=== PATIENT | male | born 1970 | race Caucasian/White ===

== ENCOUNTER 2023-04-20 12:43 | Outpatient (OUT) | payer BC, SELFPAY ==
--- NOTE | 2023-04-20 | US_ITS ---
Patient Name: KALINA SHEPPARD MR#: [id number] : 1970 Exam Date: 04/20/2023 Ordering Doctor: DR Emmanuel Bernal . RADIOLOGY REPORT PROCEDURE: MM TOMOSYNTHESIS DIAGNOSTIC BI, 04/20/2023, 12:47 US BREAST RT LIMITED, 04/20/2023, 13:29 COMPARISON: None. INDICATIONS: Right Breast Lump Calculator Name NCI Breast Cancer Risk Assessment Tool 5 Year Breast Cancer Risk Not Applicable. Lifetime Breast Cancer Risk Not Applicable. Personal Breast Cancer No Personal Ovarian Cancer No Treatments None Family Cancers None LOCATION: [facility] BREAST COMPOSITION: Almost entirely fatty. FINDINGS: DIAGNOSTIC CATEGORY 1--NEGATIVE. RIGHT BREAST: No abnormal or suspicious finding on mammography and breast ultrasound. LEFT BREAST: No abnormal or suspicious finding on mammography. RECOMMENDATIONS: CLINICAL EVALUATION. PLEASE NOTE: A NORMAL MAMMOGRAM DOES NOT EXCLUDE THE POSSIBILITY OF BREAST CANCER. A CLINICALLY SUSPICIOUS PALPABLE LUMP SHOULD BE BIOPSIED. Dictated by: Stephen Cottrell M.D. on 04/20/2023 at 15:45 Approved by: Stephen Cottrell M.D. on 04/20/2023 at 15:46
--- NOTE | 2023-04-20 12:46 | MM_ITS ---
Patient Name: KALINA SHEPPARD MR#: [id number] : 1970 Exam Date: 04/20/2023 Ordering Doctor: DR Emmanuel Bernal . RADIOLOGY REPORT PROCEDURE: MM TOMOSYNTHESIS DIAGNOSTIC BI, 04/20/2023, 12:47 US BREAST RT LIMITED, 04/20/2023, 13:29 COMPARISON: None. INDICATIONS: Right Breast Lump Calculator Name NCI Breast Cancer Risk Assessment Tool 5 Year Breast Cancer Risk Not Applicable. Lifetime Breast Cancer Risk Not Applicable. Personal Breast Cancer No Personal Ovarian Cancer No Treatments None Family Cancers None LOCATION: [facility] BREAST COMPOSITION: Almost entirely fatty. FINDINGS: DIAGNOSTIC CATEGORY 1--NEGATIVE. RIGHT BREAST: No abnormal or suspicious finding on mammography and breast ultrasound. LEFT BREAST: No abnormal or suspicious finding on mammography. RECOMMENDATIONS: CLINICAL EVALUATION. PLEASE NOTE: A NORMAL MAMMOGRAM DOES NOT EXCLUDE THE POSSIBILITY OF BREAST CANCER. A CLINICALLY SUSPICIOUS PALPABLE LUMP SHOULD BE BIOPSIED. Dictated by: Stephen Cottrell M.D. on 04/20/2023 at 15:45 Approved by: Stephen Cottrell M.D. on 04/20/2023 at 15:46
== END 2023-04-20 12:44 | disposition home or self-care (01) ==
LOC: MAMMO 12:44
PROVIDERS: PCP Family Medicine; Visit Provider Family Medicine
DX: N63.10 Unspecified lump in the right breast, unspecified quadrant (principal)
CPT/HCPCS: 76642; 77066; G0279

== ENCOUNTER 2023-05-20 08:13 | Outpatient (OUT) | payer BC, SELFPAY ==
--- OUTSIDE RECORDS SUMMARY | 2023-05-20 08:16 | XMS_ITS | CCD ---
Author Name Unknown Address [address] [place] [address] Organization [facility] Care Team Providers Care Rug Cleaner Helper Name Role Phone MINIACI, [place] Unavailable Unavailable MINIACI, [place] Unavailable Unavailable MINIACI, [place] Unavailable Unavailable MINIACI, [place] Unavailable Unavailable ARACELI BARROSO ([facility]) Unavailable Unavai lable MINIACI, [place] Unavailable Unavailable MINIACI, [place] Unavailable Unavailable MINIACI, [place] Unavailable Unavailable MINIACI, [place] Unavailable Unavailable TIFFANY MALIK Unavailable Unavailable MINIACI, [place] Unavailable Unavailable MINIACI, [place] Unavailable Unavailable MINIACI, [place] Unavailable Unavailable MINIACI, [place] Unavailable Unavailable MINIACI, [place] Unavailable Unavailable MINIACI, [place] Unavailable Unavailable MINIACI, [place] Unavailable Unavailable MINIACI, [place] Unavailable Unavailable MINIACI, [place] Unavailable Unavailable MINIACI, [place] Unavailable Unavailable PHYSICIAN, DEFAULT Unavailable Unavailable PHYSICIAN, DEFAULT Unavailable Unavailable ARIADNA BERNAL Unavailable Unavailable DR ARIADNA BERNAL Attending Unavailable DOYLE, DR ROSENTHAL Admitting Unavailable DOYLE, DR ROSENTHAL Primary Care Unavailable DR ARIADNA BERNAL Consulting Unavailable DR ARIADNA BERNAL Admitting Unavailable DR ARIADNA BERNAL Primary Care Unavailable DR ARIADNA BERNAL Consulting Unavailable DR ARIADNA BERNAL Attending Unavailable Problems Problem Classification Problem Date Documented Da te Episodic/Chronic Osteoarthritis (1 source) Unilateral post-traumatic osteoarthritis, right knee; Translations: [Unilateral post-traumatic osteoarthritis, right knee] Onset: 02-23-2017 Chronic Other non-traumatic joint disorders (1 source) Loose body in unspecified joint; Translations: [Loose body in unspecified joint] Onset: 03-08-2017 Chronic Other screening for suspected conditions (not mental disorders or infectious disease) (5 sources) Encounter for screening for malignant neoplasm of rectum; Translations: [Encounter for screening for malignant neoplasm of prostate] Onset: 04-20-2022 Episodic Unclassified (1 source) Pain, unspecified; Translations: [Pain, unspecified] Onset: 02-07-2017 Unclassified (1 source) Unknown / UNK(Unknown) Onset: 04-13-2017 Results Test Name Value Interpretation Reference Range Facility OCC BLD IMMUNO SCREENon 04-11 OCCULT BLOOD Negative Normal NEGATIVE [facility] Comment on above: Performed By: #### O BSCRN #### [facility] [address] [place] [address] Dr. Lucia Ellis INSULINon 04-19-2022 Insulin 14.0 uIU/mL Normal 2.6-24.9 [facility] Comment on above: Performed By: #### I NSULIN #### [facility] [address] [place] [address] Dr. Lucia Ellis CBC AUTO DIFFon 04-17-2022 BASO # 0.1 103/ul Normal 0.0-0.1 [facility] Comment on above: Performed By: #### C BC #### [facility] [address] [place] [address] Dr. Lucia Ellis Basophils/100 WBC (Bld) 0.9 % Normal 0.2-2.0 [facility] Comment on above: Performed By: #### C BC #### [facility] [address] [place] [address] Dr. Lucia Ellis EO # 0.2 103/ul Normal 0.0-0.7 [facility] Comment on above: Performed By: #### C BC #### [facility] [address] [place] [address] Dr. Lucia Ellis Eosinophils/100 WBC (Bld) 2.3 % Normal 0.9-7.0 [facility] Comment on above: Performed By: #### C BC #### [facility] [address] [place] [address] Dr. Lucia Ellis Erythrocyte distribution width (RBC) [Ratio] 12.2 % Normal 11.0-15.0 [facility] Comment on above: Performed By: #### C BC #### [facility] [address] [place] [address] Dr. Lucia Ellis Hematocrit (Bld) [Volume fraction] 41.3 % Critically low 42.0-54.0 [facility] Comment on above: Performed By: #### C BC #### [facility] [address] [place] [address] Dr. Lucia Ellis Hemoglobin (Bld) [Mass/Vol] 15.0 g/dL Normal 14.0-18.0 [facility] Comment on above: Performed By: #### C BC #### [facility] [address] [place] [address] Dr. Lucia Ellis IG # 0.04 10e3/ul Critically high 0.00-0.03 [facility] Comment on above: Performed By: #### C BC #### [facility] [address] [place] [address] Dr. Lucia Ellis IG % 0.6 % Critically high 0.0-0.5 [facility] Comment on above: Performed By: #### C BC #### [facility] [address] [place] [address] Dr. Lucia Ellis LYMPH # 2.8 103/ul Normal 1.2-3.8 [facility] Comment on above: Performed By: #### C BC #### [facility] [address] [place] [address] Dr. Lucia Ellis Lymphocytes/100 WBC (Bld) 40.1 % Normal 20.5-60.0 [facility] Comment on above: Performed By: #### C BC #### [facility] [address] [place] [address] Dr. Lucia Ellis MANUAL DIFF REQ NO Normal [facility] Comment on above: Performed By: #### C BC #### [facility] [address] [place] [address] Dr. Lucia Ellis MCH (RBC) [Entitic mass] 29.1 pg Normal 25.9-34.0 [facility] Comment on above: Performed By: #### C BC #### [facility] [address] [place] [address] Dr. Lucia Ellis MCHC (RBC) [Mass/Vol] 36.3 g/dL Critically high 29.9-35.2 [facility] Comment on above: Performed By: #### C BC #### [facility] [address] [place] [address] Dr. Lucia Ellis MCV (RBC) [Entitic vol] 80.2 fL Normal 80.0-94.0 [facility] Comment on above: Performed By: #### C BC #### [facility] [address] [place] [address] Dr. Lucia Ellis MONO # 0.5 103/ul Normal 0.3-0.8 [facility] Comment on above: Performed By: #### C BC #### [facility] [address] [place] [address] Dr. Lucia Ellis Monocytes/100 WBC (Bld) 7.1 % Normal 1.7-12.0 [facility] Comment on above: Performed By: #### C BC #### [facility] [address] [place] [address] Dr. Lucia Ellis NEUT # 3.4 103/ul Normal 1.4-6.5 [facility] Comment on above: Performed By: #### C BC #### [facility] [address] [place] [address] Dr. Lucia Ellis Neutrophils/100 WBC (Bld) 49.0 % Normal 43.0-75.0 [facility] Comment on above: Performed By: #### C BC #### [facility] [address] [place] [address] Dr. Lucia Ellis Platelet mean volume (Bld) [Entitic vol] 8.8 fL Critically low 9.5-13.5 [facility] Comment on above: Performed By: #### C BC #### [facility] [address] [place] [address] Dr. Lucia Ellis PLT 260 103/ul Normal 150-450 [facility] Comment on above: Performed By: #### C BC #### [facility] [address] [place] [address] Dr. Lucia Ellis RBC 5.15 106/ul Normal 4.70-6.10 [facility] Comment on above: Performed By: #### C BC #### [facility] [address] [address] [address] Lucia Ellis WBC 6.9 103/ul Normal 4.0-11.0 [facility] Comment on above: Performed By: #### C BC #### [facility] [address] [address] [address] Lucia Ellis GLYCOHEMOGLOBIN A1Con 2022 ADA RECOMMENDATION SEE BELOW Normal [facility] Comment on above: Result Comment: ADA RECOMMENDED LIMIT 4.0 - 6.0 ADA THERAPEUTIC TARGET < 7.0 ACTION SUGGESTED > 7.0 Performed By: #### A 1C #### [facility] [address] [place] [address] Dr. Lucia Ellis Glucose [Mass/Vol] 108 mg/dL Normal [facility] Comment on above: Performed By: #### A 1C #### [facility] [address] [place] [address] Dr. Lucia Ellis HbA1c (Bld) [Mass fraction] 5.4 % Normal 4.5-6.2 [facility] Comment on above: Performed By: #### A 1C #### [facility] [address] [place] [address] Dr. Lucia Ellis LIPID PROFILEon 04-17-2022 CHOL-HDL RATIO NORM SEE BELOW Normal [facility] Comment on above: Result Comment: 3.3 - 4.4 LOW RISK 4.4 - 7.1 AVERAGE RISK 7.1 - 11.0 MODERATE RISK >11.0 HIGH RISK Performed By: #### L IPID, URIC, CMP #### [facility] [address] [place] [address] Dr. Lucia Ellis Cholesterol [Mass/Vol] 216 mg/dL Critically high <=200 [facility] Comment on above: Performed By: #### L IPID, URIC, CMP #### [facility] [address] [place] [address] Dr. Lucia Ellis Cholesterol in HDL [Mass/Vol] 49 mg/dL Normal 40-60 [facility] Comment on above: Performed By: #### L IPID, URIC, CMP #### [facility] [address] [address] [address] Lucia Ellis Cholesterol in LDL [Mass/Vol] 135.0 mg/dL Normal [facility] Comment on above: Performed By: #### L IPID, URIC, CMP #### [facility] [address] [address] [address] Lucia Ellis Cholesterol.total/C holesterol in HDL [Mass ratio] 4.4 {ratio} Normal [facility] Comment on above: Performed By: #### L IPID, URIC, CMP #### [facility] [address] [address] [address] Lucia Ellis HDL NORMAL > or = 60 mg/dl - LO W CARDIOVASCULAR RISK <40 mg/dl - HIGH CARDIOVASCULAR RISK Normal [facility] Comment on above: Performed By: #### L IPID, URIC, CMP #### [facility] [address] [address] [address] Lucia Ellis LDL CALC NORMAL SEE BELOW Normal [facility] Comment on above: Result Comment: <100 mg/dl OPTIMAL 100 - 129 mg/dl NEAR OR ABOVE OPTIMAL 130 - 159 mg/dl BORDERLINE HIGH 160 - 189 mg/dl HIGH >190 mg/dl VERY HIGH Performed By: #### L IPID, URIC, CMP #### [facility] [address] [address] [address] Lucia Ellis Triglyceride [Mass/Vol] 160 mg/dL Critically high <=150 [facility] Comment on above: Performed By: #### L IPID, URIC, CMP #### [facility] [address] [address] [address] Lucia Ellis VLDL CALC 32.0 mg/dL Normal [facility] Comment on above: Performed By: #### L IPID, URIC, CMP #### [facility] [address] [address] [address] Lucia Ellis PROF 14(COMP METB)on 023 Albumin [Mass/Vol] 3.8 g/dL Normal 3.4-5.0 [facility] Comment on above: Performed By: #### L IPID, URIC, CMP #### [facility] [address] [address] [address] Lucia Ellis Albumin/Globulin [Mass ratio] 1.2 {ratio} Normal [facility] Comment on above: Performed By: #### L IPID, URIC, CMP #### [facility] [address] [address] [address] Lucia Ellis ALP [Catalytic activity/Vol] 54 U/L Normal 46-116 [facility] Comment on above: Performed By: #### L IPID, URIC, CMP #### [facility] [address] [address] [address] Lucia Ellis ALT [Catalytic activity/Vol] 41 U/L Normal 16-63 [facility] Comment on above: Performed By: #### L IPID, URIC, CMP #### [facility] [address] [address] [address] Lucia Ellis Anion gap [Moles/Vol] 13.4 mmol/L Normal [facility] Comment on above: Performed By: #### L IPID, URIC, CMP #### [facility] [address] [address] [address] Lucia Ellis AST [Catalytic activity/Vol] 23 U/L Normal 15-37 [facility] Comment on above: Performed By: #### L IPID, URIC, CMP #### [facility] [address] [address] [address] Lucia Ellis Bilirubin [Mass/Vol] 0.5 mg/dL Normal 0.2-1.0 [facility] Comment on above: Performed By: #### L IPID, URIC, CMP #### [facility] [address] [address] [address] Lucia Ellis Calcium [Mass/Vol] 8.9 mg/dL Normal 8.5-10.1 [facility] Comment on above: Performed By: #### L IPID, URIC, CMP #### [facility] [address] [address] [address] Lucia Ellis Chloride [Moles/Vol] 104 mmol/L Normal 98-107 [facility] Comment on above: Performed By: #### L IPID, URIC, CMP #### [facility] [address] [place] [address] Dr. Lucia Ellis CO2 [Moles/Vol] 27.9 mmol/L Normal 21.0-32.0 [facility] Comment on above: Performed By: #### L IPID, URIC, CMP #### [facility] [address] [place] [address] Dr. Lucia Ellis Creatinine [Mass/Vol] 0.69 mg/dL Critically low 0.70-1.30 [facility] Comment on above: Performed By: #### L IPID, URIC, CMP #### [facility] [address] [place] [address] Dr. Lucia Ellis EGFR-AF BELARUSIAN >60 Normal >=60 [facility] Comment on above: Performed By: #### L IPID, URIC, CMP #### [facility] [address] [place] [address] Dr. Lucia Ellis EGFR-NON AF BELARUSIAN >60 Normal >=60 [facility] Comment on above: Performed By: #### L IPID, URIC, CMP #### [facility] [address] [place] [address] Dr. Lucia Ellis Globulin (S) [Mass/Vol] 3.2 g/dL Normal [facility] Comment on above: Performed By: #### L IPID, URIC, CMP #### [facility] [address] [place] [address] Dr. Lucia Ellis Glucose [Mass/Vol] 99 mg/dL Normal 74-106 [facility] Comment on above: Performed By: #### L IPID, URIC, CMP #### [facility] [address] [place] [address] Dr. Lucia Ellis Potassium [Moles/Vol] 4.3 mmol/L Normal 3.5-5.1 [facility] Comment on above: Performed By: #### L IPID, URIC, CMP #### [facility] [address] [place] [address] Dr. Lucia Ellis Protein [Mass/Vol] 7.0 g/dL Normal 6.4-8.2 [facility] Comment on above: Performed By: #### L IPID, URIC, CMP #### [facility] [address] [address] [address] Lucia Ellis Sodium [Moles/Vol] 141 mmol/L Normal 136-145 [facility] Comment on above: Performed By: #### L IPID, URIC, CMP #### [facility] [address] [place] [address] Dr. Lucia Ellis Urea nitrogen [Mass/Vol] 16.0 mg/dL Normal 7.0-18.0 [facility] Comment on above: Performed By: #### L IPID, URIC, CMP #### [facility] [address] [place] [address] Dr. Lucia Ellis Urea nitrogen/Creatinine [Mass ratio] 23.2 mg/mg Normal [facility] Comment on above: Performed By: #### L IPID, URIC, CMP #### [facility] [address] [place] [address] Dr. Lucia Ellis URIC ACID SERUMon 04-17-2022 Urate [Mass/Vol] 6.1 mg/dL Normal 3.5-7.2 [facility] Comment on above: Performed By: #### L IPID, URIC, CMP #### [facility] [address] [place] [address] Dr. 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)But is happy that he can go up and down stairs without issues, reportsintermittent 2/10 discomfort, non-limitingDenies any c/o instability, or mechanical sxs,Back to work 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,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 needs C709 formCompleted to return back to full-time duties, ambulating independently, deniesany complaints of numbness or tinglingDenies calf painREVIEW OF SYSTEMS:CONSTITUTIONAL: Denies fever and weight loss.EYES: Denies acute vision changes.ENT: Denies hearing changes or difficulty swallowing.CARDIAC: Denies chest pain or edema.RESPIRATORY: Denies dyspnea, cough or wheeze.GASTROINTESTINAL: Denies abdominal pain, nausea, vomiting.MUSCULOSKELETAL: See HPI.SKIN: Denies any recent rash or lesion.NEUROLOGICAL: Denies numbness or focal weakness.PSYCHIATRIC: No history of psychiatric symptoms or problems.ENDOCRINE: Denies current diagnosis of diabetes.HEMATOLOGY: Denies episodes of easy bleeding.Allergies, medications, past surgical history and past medical history werereviewed during this encounter.Physical Examination: Region: KneeNon antalgic gaitLeft Exam:AROM: NormalPROM: Same as activeSwelling/Effusion: noneStability: normalMuscle Strength: normalIncision: n/aRight Exam:AROM: 3/130PROM: Same as activeSwelling/Effusion: mildStability: normalMuscle Strength: decreasedIncision: well healed without erythema, tenderness, warmth or drainageImages have been personally reviewed by me and discussed with patient. None .Assessment and Plan: 11 weeks postop with improvement of knee symptomsSeen and examined by Dr. Harkins improvement of symptoms patient will continue activities as tolerated,Return back to full-time duties without restrictionsDated today, forms to be completed and faxed to his employerShould he develop any issues in the future will come back in follow-upElliott Mccabe MD 06/08/2017 10:32 AM SignedI have personally seen, examined the pt. And agree with the documentation of myclinical staff. I have personally developed the pt's plan of care.Sofiya Quinones Provider: HOUSTON AWAN [[id number]]Allergies As of Date: 06/08/2017(No Known Allergies)Date Reviewed: 06/08/2017Reviewed by: Araceli Velasco ([facility]) [place]io - Fully AssessedReason for Visit: Post-Op Visit [1236] Cmt: RIght knee post op visit. Pain is intermittent at a 2 outof ten.Primary Visit Diagnosis:Primary osteoarthritis of right knee [M17.11] Other Visit Diagnosis:Loose body in knee, right [M23.41]Prescriptions as of 06/08/2017 Sig: ASPIRIN 81 MG CHEWABLE TABLET TAKE ONE 325 MG TABLET OF ASP* GLUCOSAMINE COMPLEX ORAL Take by mouth. PAROXETINE 40 MG TABLET Take 40 mg by mouth once madelyn* METOPROLOL TARTRATE 50 MG TAB* Take 50 mg by mouth once madelyn* MULTIVITAMIN CAPSULE Take 1 capsule by mouth once *Problem List As Of Date 06/08/2017 Noted Resolved TEAR MENISCUS NEC-CURRENT [[id number]] INVALID FOR* MITRAL VALVE DISORDER [I05.9] INVALID FOR* ANXIETY STATE NEC [F41.1] INVALID FOR* INT DERANGEMENT KNEE NOS [M23.90] INVALID FOR* Joint loose bodies [M24.00] INVALID FOR* More... OA (osteoarthritis) of knee [M17.10] INVALID FOR* More... Status:Closed by [place]ON AWAN MD on 06/08/17 [facility] PROGRESSon 06-08-2017 PROGRESS HNO ID: [id number] thor: [place] AwanService: (none)Author Type: PhysicianType: Progress NotesFiled: 06/08/2017 10:32 AMNote Text:I have personally seen, examined the pt. And agree with the documentationof my clinical staff. I have personally developed the pt's plan ofcare.Houston Awan MD [facility] PROGRESS HNO ID: [id number] thor: Araceli Velasco ([facility]) Dailyice: (none)Author Type: Nurse PractitionerType: Progress NotesFiled: 06/08/2017 10:32 AMNote Text:Chief Complaint: follow-up of 11 wks s/p Right knee arthroscopy,chondroplasty, and removal of multiple loose bodies.?HPI: doing well, reports significant improvement in sxs, isn't back doingheavy labor (pouring concrete)But is happy that he can go up and down stairs without issues, reportsintermittent 2/10 discomfort, non-limitingDenies any c/o instability, or mechanical sxs,Back to work 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,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 needs C709 formCompleted to return back to full-time duties, ambulating independently,denies any complaints of numbness or tinglingDenies calf painREVIEW OF SYSTEMS:CONSTITUTIONAL: Denies fever and weight loss.EYES: Denies acute vision changes.ENT: Denies hearing changes or difficulty swallowing.CARDIAC: Denies chest pain or edema.RESPIRATORY: Denies dyspnea, cough or wheeze.GASTROINTESTINAL: Denies abdominal pain, nausea, vomiting.MUSCULOSKELETAL: See HPI.SKIN: Denies any recent rash or lesion.NEUROLOGICAL: Denies numbness or focal weakness.PSYCHIATRIC: No history of psychiatric symptoms or problems.ENDOCRINE: Denies current diagnosis of diabetes.HEMATOLOGY: Denies episodes of easy bleeding.Allergies, medications, past surgical history and past medical historywere reviewed during this encounter.Physical Examination: Region: KneeNon antalgic gaitLeft Exam:AROM: NormalPROM: Same as activeSwelling/Effusion: noneStability: normalMuscle Strength: normalIncision: n/aRight Exam:AROM: 3/130PROM: Same as activeSwelling/Effusion: mildStability: normalMuscle Strength: decreasedIncision: well healed without erythema, tenderness, warmth or drainageImages have been personally reviewed by me and discussed with patient.None .Assessment and Plan: 11 weeks postop with improvement of knee symptomsSeen and examined by Dr. Harkins improvement of symptoms patient will continue activities astolerated,Return back to full-time duties without restrictionsDated today, forms to be completed and faxed to his employerShould he develop any issues in the future will come back in follow-upAraceli Barroso CNP Normal [facility] 05-02-2017 Thyroid stimulating hormone (TSH) Letter [facility] IncHouston Awan MD[address] [place], [place] [address]: [phone] Swwqc. [phone] 2017ATTN: VickiDipika # [id number] Shipmanz[address]AttEllett Memorial Hospital [address]Nk Whom It May Concern,This letter is to certify that Tomasz Sheppard has been under my carefollowing knee surgery on March 22, 2018. Tomasz may return to work onMay 05, 2017 with the following restrictions for the next 4 weeks:Light duty work, which would include intermittent sitting to rest knee astoleratedNo climbing, no laddersNo crawlingThank you for your consideration with this matter.Sincerely,Houston Awan MD Normal [facility] Discharge Summaryon 04-29-19 18 HIM IP Note OR Control Technician [facility] Progress Noteon 04-29-2017 HIM IP Note OR Control Technician [facility] Progress Noteon 04-26-2017 HIM IP Note OR Control Technician [facility] Progress Noteon 04-22-2017 HIM IP Note OR Control Technician [facility] Progress Noteon 04-19-2017 HIM IP Note OR Control Technician [facility] Progress Noteon 04-15-2017 HIM IP Note OR Control Technician [facility] PROGRESSon 04-14-2017 PROGRESS HNO ID: [id number] thor: Araceli Velasco ([facility]) ReinhardtService: (none)Author Type: Nurse PractitionerType: Progress NotesFiled: 04/14/2017 3:31 PMNote Text:This visit was conducted as a virtual visit.Chief Complaint:: 3 wks s/p Right knee arthroscopy, chondroplasty, andremoval of multiple loose bodies.HPI: pain has improved, tolerable with OTC NSAIDs,Denies any c/o N/T, calf pain or calf swelling.Denies any complaints of mechanical sxs, denies catching, or locking sxsAmbulating independentlyDenies any issues with incisions, denies any local tenderness or redness,had sutures taken out locally this week without issues,minimal knee swelling.Tolerating PT/HEP without any issues, still feels weakReturn to work goal: 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,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 on 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 feet all day, climbing ladders, crawling, squatting-[id number] formThat was sent to our office filled out for his work as it relates karlie's appointmentReview of Systems:GENERAL: No weight loss, malaise, fevers or chillsRESPIRATORY: Negative for cough, hemoptysis, wheezing or shortness ofbreathCARDIOVASCULAR: Negative for chest pain, lightheaded ness or palpitationsGI: No nausea, vomiting, diarrhea or constipationAllergies, medications, past surgical history and past medical historywere reviewed during this encounter.Physical Examination: Region: KneeAlert, oriented in no acute distressNormal effect. mild antalgic gaitRight Exam:Able to fully straighten knee while sitting on chair, flexes to it [id number] degresSwelling/Effusion: traceIncision: Well-healed, without evidence of erythema, or drainage.Assessment : 3 wks post op with no evidence of DVT or infectionPlan1) Wound Care May get incisions wet in the shower, by allowing the water to run overthem. Avoid scrubbing incisions.Avoid soaking your leg in a hot tub, bath tub or pool until you are atleast 6 weeks post op and incisions well healed. Do not apply lotions or ointments to your incisions until you are 6weeks post op and incisions are well healed.2) use local, intermittent ice with skin covered, elevation andstockenette as needed3) continue PT/HEP4) discussed we'll check with office as to the status of the C7 09 form,Further discussed return to work plan, given the nature of his jobDiscussed returning in approximately 3-4 weeks' timeOn light duty, which would include intermittent sitting to rest knee astolerated,No climbing, no ladders or crawling6) return in 9 wks with no x-rays with Dr Lorne Barroso, TASSEL MAKING MACHINE OPERATOR Normal [facility] 04-13-2017 [facility] ([facility]) ---------TOMASZ SHEPPARD ([id number]) 1970 MDate Time Provider Department04/13/17 10:00 AM ARACELI BARROSO ([place]) [facility] During your visit today, we recorded the following information about you:Araceli Barroso CNP 04/14/2017 3:31 PM SignedThis visit was conducted as a virtual visit.Chief Complaint:: 3 wks s/p Right knee arthroscopy, chondroplasty, and removalof multiple loose bodies.HPI: pain has improved, tolerable with OTC NSAIDs,Denies any c/o N/T, calf pain or calf swelling.Denies any complaints of mechanical sxs, denies catching, or locking sxsAmbulating independentlyDenies any issues with incisions, denies any local tenderness or redness, hadsutures taken out locally this week without issues,minimal knee swelling.Tolerating PT/HEP without any issues, still feels weakReturn to work goal: 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,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 mild antalgic gaitRight Exam:Able to fully straighten knee while sitting on chair, flexes to it [id number] degresSwelling/Effusion: traceIncision: Well-healed, without evidence of erythema, or drainage.Assessment : 3 wks post op with no evidence of DVT or infectionPlan1) Wound Care May get incisions wet in the shower, by allowing the water to run over them. Avoid scrubbing incisions.Avoid soaking your leg in a hot tub, bath tub or pool until you are at least 6weeks post op and incisions well healed. Do not apply lotions or ointments to your incisions until you are 6 weekspost op and incisions are well healed.2) use local, intermittent ice with skin covered, elevation and stockenette asneeded3) continue PT/HEP4) discussed we'll check with office as to the status of the C7 09 form,Further discussed return to work plan, given the nature of his jobDiscussed returning in approximately 3-4 weeks' timeOn light duty, which would include intermittent sitting to rest knee astolerated,No climbing, no ladders or crawling6) return in 9 wks with no x-rays with Dr Lorne Barroso, [facility]Referring Provider: HOUSTON AWAN [[id number]]Allergies As of Date: 04/13/2017(No Known Allergies)Date Reviewed: 03/22/2017Reviewed by: Araceli Velasco ([facility]) Chio - Fully AssessedPrimary Visit Diagnosis:Post-operative state [Z98.890]Prescriptions as of 04/13/2017 Sig: ASPIRIN 81 MG CHEWABLE TABLET TAKE ONE 325 MG TABLET OF ASP* GLUCOSAMINE COMPLEX ORAL Take by mouth. PAROXETINE 40 MG TABLET Take 40 mg by mouth once madelyn* METOPROLOL TARTRATE 50 MG TAB* Take 50 mg by mouth once madelyn* MULTIVITAMIN CAPSULE Take 1 capsule by mouth once *Problem List As Of Date 04/13/2017 Noted Resolved TEAR MENISCUS NEC-CURRENT [ZVH4556] INVALID FOR* MITRAL VALVE DISORDER [I05.9] INVALID FOR* ANXIETY STATE NEC [F41.1] INVALID FOR* INT DERANGEMENT KNEE NOS [M23.90] INVALID FOR* Joint loose bodies [M24.00] INVALID FOR* More... OA (osteoarthritis) of knee [M17.10] INVALID FOR* More...Medications Discontinued During This Encounter HYDROcodone-acetaminophen (NORCO) 5-* 35 t* 0 03/22/2017 04/14/2017 Class: Print RX Sig: One tablet by mouth every 4 to 6 hours as needed PRN For pain Disc: Course of therapy completed docusate sodium (COLACE) 100 mg caps* 60 c* 0 03/22/2017 04/14/2017 Class: Print RX Route: ORAL Sig: Take 1 capsule by mouth twice daily as needed for Constipation (take while taking narcotic pain medication). Disc: Course of therapy completedFollow-up and Disposition History RecordedEncounter Number: [id number] Status:Closed by ARACELI BARROSO CNP on 04/14/17 Normal [facility] Progress Noteon 04-12-2017 HIM IP Note OR Control Technician Normal [facility] Progress Noteon 04-08-2017 HIM IP Note OR Control Technician Normal [facility] Progress Noteon 04-06-2017 HIM IP Note OR Control Technician [facility] ANES Jey 03-22-2017 ANES POST HNO ID: [id number] thor: Zhang Ramesh IIIService: AnesthesiologyAuthor Type: AnesthesiologistType: Anesthesia PostOpFiled: 03/22/2017 4:58 PMNote Text:POST ANESTHESIA EVALUATION NOTESERVICE DATE: 03/22/2017SERVICE TIME: 35DOB: 1970Vitals: 03/22/1708Temp: 36.5 ?C (97.7 ?F) 36.5 ?C (97.7 ?F) 03/22/1708P: 134/80 131/75 132/78 132/77 03/22/1708Pulse: 81 73 64 66 03/22/1708Resp: 15 16 20 18 03/22/1708SpO2: 97% 99% 98% 99%Validated Vital Signs: YesPOST ANES STATUS: No apparent anesthetic complications. The patient isappropriately hydrated with stable respiratory and cardiovascular status.Patient has safe and adequate airway control. The patient has appropriatepain relief and no significant post operative nausea or vomiting. Thepatient has achieved baseline mental status.Further assessment by Anesthesia Service: NoneOther Remarks:SIGNATURE: Zhang Ramesh MD PATIENT NAME: Tomasz SheppardDATE: March 22, 2017 : 9:35 AM PAGER/CONTACT #: [id number] [facility] ANES PREOPon 03-22-2017 ANES PREOP HNO ID: [id number] thor: Zhang Ramesh IIIService: AnesthesiologyAuthor Type: AnesthesiologistType: Anesthesia PreOpFiled: 03/22/2017 7:24 AMNote Text: ANESTHESIOLOGY DAY OF SURGERY NOTESERVICE DATE: 03/22/2017SERVICE TIME: 716DOB: 1970Procedure(s) (LRB):ARTHROSCOPY KNEE ARTICULAR CARTILAGE SHAVING OR DEBRIDEMENT (Right)ARTHROSCOPIC REMOVAL LOOSE BODY KNEE (Right)CHONDROPLASTY KNEE (Right)Surgeon(s):Houston Vasquez body mass index is 36.07 kg/(m2) as calculated from thefollowing: Height as of this encounter: 182.9 cm (6' 0.01 ). Weight as of this encounter: 120.7 kg (266 lb).Most recent hematocrit and potassium results:Hematocrit 44.2 05/17/2005Potassium 4.4 05/17/2005NES DOS/PREOP NOTE:Vitals: 018751MO: 133/91Pulse: 71Resp: 18Temp: 36.5 ?C (97.7 ?F)TempSrc: TympanicSpO2: 99%Weight: 120.7 kg (266 lb)Height: 182.9 cm (6' 0.01 )ACTIVE PROBLEM LISTOther Tear of Cartilage Or Meniscus of Knee, CurrentMitral Valve Disorders(424.0)Other Anxiety StatesUnspecified Internal Derangement of KneeJoint Loose BodiesOa (Osteoarthritis) of KneeNo past medical history on file.No past surgical history on file.No family history on file.Social History:Social HistorySubstance Use Topics- Smoking status: Never Smoker- Smokeless tobacco: Not on file- Alcohol use Not on fileNo current facility-administered medications on file prior to encounter.Current Outpatient Prescriptions on File Prior to Encounter:GLUCOSAMINE HCL AND SULFATE (GLUCOSAMINE COMPLEX ORAL) Take by mouth.PARoxetine (PAXIL) 40 mg tablet Take 40 mg by mouth once daily.metoprolol tartrate, short acting, (LOPRESSOR) 50 mg tablet Take 50 mg bymouth once daily.aspirin 81 mg chewable tablet Take 81 mg by mouth once daily.Multivitamin capsule Take 1 capsule by mouth once daily.Current Facility-Administered Medications:lactated ringers infusion 5-30 mL/hr INTRAVENOUS CONTINUOUS Leslee (Architecture Technician)Chio Last Rate: 30 mL/hr at 03/22/17 0625 30 mL/hr at 03/22/17 0625ceFAZolin 3 g in sterile water 30 mL (ANCEF) 3 g INTRAVENOUS Pre-Op OnceAraceli Nyey (Architecture Technician) Reinhardtscopolamine 1 mg over 3 days 1 Patch (TRANSDERM-SCOP) 1 Patch TRANSDERMALq 72 HR Zhang Peña[START ON 03/25/2017] scopolamine - REMOVE PATCH OTHER q 72 HR Zhang Peñascopolamine - VERIFY patch OTHER q 8 H Zhang ROBERTSllergies: ALLERGIESNo Known AllergiesDOS EXAM: Adequate NPO status: YesAnesthetic risks, benefits, alternatives, personnel and consent discussed:YesPatient agrees to proceed: YesPrevious Anesthesia: No history of adverse event.Airway Assessment: MP 1; Neck ROM: Full ROM without neurologic symptoms;Airway Evaluation: No significant abnormalitiesSymptoms of Sleep Apnea: yesDentition: Teeth intactAdditional Physical Exam:Lungs: Patient health status unchanged since recent history and physical.See history and physical for exam findings.Cardiac: Patient health status unchanged since recent history andphysical. See history and physical for exam findings.Additional Pertinent Findings: N/ABlood Products: Not anticipated for this procedure.Anesthetic Plan: General, Standard ASA MonitorsPain Management Plan: Parenteral or OralASA Class: 2Other Medical Problems: NoneChronic Beta Stephanie medication administered within 24 hours: N/AI have interviewed and examined the patient. I have reviewed the medicalrecord and/or the pre-anesthesia evaluation, pertinent labs, and testresults.Significant changes in the patient's condition since the History andPhysical, not otherwise documented in primary service progress notes: NoThis contains updated information obtained within 48 hours ofSurgery/Procedure.SIGNAT URE: Zhang Ramesh MD PATIENT NAME: Tomasz SheppardDATE: March 22, 2017 : 7:17 AM CSN: [id number] [facility] BRIEF OP NOTon 03-22-2017 BRIEF OP NOT HNO ID: [id number] thor: Houston Rydere: Orthopaedic SurgeryAuthor Type: PhysicianType: Brief Op NoteFiled: 03/22/2017 8:32 AMNote Text:BRIEF OP NOTELOG ID: [id number]/Procedure Date: 03/22/2017Incision/Procedu re Start Time: 8:04 AMIncision Close/Procedure End Time: 8:21 AMSurgeon(s)/Proceduralist (s) and Shop Router(s):Surgeon(s) and Role: * Houston Awan - Primary * Araceli Barroso CNP first assistantProcedure(s): right knee arthroscopy with debridement and removal of loosebodiesAnesthesia: GeneralFindings: grade 4 cartilage loss lateral compartment, grade 3-4 lossmedial compartment, some cartilage loss patellofemoral compartment,multiple loose bodiesEstimated Blood Loss: 0 mlSpecimens: NoneComplications: NonePre-Op/Pre-Procedure Diagnosis: right knee arthritis, with loose bodiesPost-Op/Post-Procedu re Diagnosis: Joint loose bodies [M24.00]OA(osteoarthritis) of knee [M17.10]SIGNATURE: Houston Awan MD PATIENT NAME: Tomasz SheppardDATE: March 22, 2017 : 8:29 AM PAGER/CONTACT #: [facility] NURSING PROGon 03-22-2017 NURSING PROG HNO ID: [id number] thor: Clarissa Moreland (Rn) AIXA Renteriaervice: (none)Author Type: Registered NurseType: Nursing Progress NoteFiled: 03/23/2017 2:58 PMNote Text:Patient states no pain. Had moderate amount of bloody drainage yesterdayand changed dressing, no further drainage. No questions or concerns. [facility] NURSING PROG HNO ID: [id number] thor: Zena Estrella) Gaby Augileraice: NursingAuthor Type: Registered NurseType: Nursing Progress NoteFiled: 03/22/2017 6:51 AMNote Text:PRE OP LEARNING ASSESSMENTPROCEDURE/SURGER Y: SURGERY: Right knee arthroscopyREADINESS TO LEARNCOGNITIVE ABILITY: Alert and orientedMOTIVATION TO LEARN: EagerFAMILY SUPPORT: High - Very involved in pt carePATIENT LEARNS BEST BY: Verbal InstructionFACTORS AFFECTING LEARNING: NonePHYSICAL LIMITATIONS AFFECTING LEARNING: NoneElectronically Signed By: Zena Aguilera RN In Department: [facility] - [facility] OPERATIVE NOon 03-22-2017 OPERATIVE NO HNO ID: [id number] thor: Houston AwanService: Orthopaedic SurgeryAuthor Type: PhysicianType: Operative ReportFiled: 03/24/2017 7:22 AMNote Text:[facility] HOSPITALOperative ReportORIGINATOR: JAZMINE MorenoTOMASZ WMRN: [id number] ACCTNUM: [id number]: OROR LOCATION: [place] [address]ATTENDING PHYSICIAN: Houston Awan, MDDATE OF PROCEDURE: 03/22/2017SURGEON: Houston Awan MDASSISTANT: Araceli Barroso, certified nurse practitioner. Noresidents or fellows available. Susan Barroso was necessary forpositioning the patient, arthroscopic equipment assisting during thetechnical portions of the procedure.PREOPERATIVE DIAGNOSIS: 1. Primary osteoarthritis, right knee.2. Multiple loose bodies, right knee.POSTOPERATIVE DIAGNOSIS: 1. Primary osteoarthritis, right knee.2. Multiple loose bodies, right knee.OPERATION: Right knee arthroscopy, chondroplasty, and removal of multipleloose bodies.ANESTHESIA: General anesthesia.MODIFIER 22: Patient's BMI greater than 35.PREOPERATIVE ASSESSMENT: Tomasz is a 46-year-old who has been havingongoing problems with the feelings of instability and pain in his rightknee.Preoperative assessment had revealed some laxity of his ACL on MRI withmultiple loose bodies, severe and advanced osteoarthritis of the lateralcompartment of his knee, and in view of his symptomatology, feelings ofmechanical symptoms, we felt that an arthroscopy with removal of loosebodies might help solve some of his symptomatology. [facility] [place],appropriate right extremity marked. The patient was then prepared forsurgery, given intravenous fluids, intravenous antibiotics, the patientwas then taken to the operating room.DESCRIPTION OF OPERATION: After appropriate huddles and time-outs, thepatient was given general anesthetic, supine position. Right leg wasprepped and draped in the usual manner. Pneumatic tourniquet wasinflated to 300 mmHg. Standard diagnostic arthroscopy through ananterolateral portal. Arthroscopic findings of surgery were as follows.1. Patellofemoral joint demonstrated some fraying, grade 2 to 3 changes onthe retropatellar surface and in the trochlear ridge. These weredebrided,chondroplasty performed. A significant amount of synovitis, partialsynovectomy performed. No loose bodies identified in the suprapatellarpouch.2. Medial compartment. Medial compartment was very tight, degenerativefraying of the inner meniscus, no evidence of any loose articularcartilage fragments.3. Intercondylar notch demonstrated significant pathology. On the medialfemoral condyle in the medial aspect, there was a large bone spur, butthere was also some bone spurring in the intercondylar region withmultiple loose fragments of bone impinging in extension and mobile. Softtissue dissection was performed tomobilize the loose fragments, and at least 3 to 4 large fragments wereremoved from the intercondylar area. There was a large spur on theanterior cruciate ligament intercondylar eminence which impinged inextension, and this was burred down as well. There was partial tearingof his ACL graft. This was debrided. We could visualize that the ACLgraft fibers were intact but somewhat lax.4. The lateral compartment demonstrated significant pathology. Large spuron the tibial plateau in the intercondylar eminence, ojjf-zo-ttgg grade 4changes in the lateral compartment. There was a remnant of the anteriorhorn of the lateral meniscus which was torn and impinging in extension.This was resected.Underlying loose fragment of bone as well. Chondroplasty was performed ofany loose articular cartilage flaps. At the conclusion of the procedure,the knee was thoroughly irrigated. The knee was injected with Marcaine.The wounds were closed in the usual manner. Bulky compressive dressingwas applied. Pneumatic tourniquet was deflated, and the patient wastaken to the recovery room.ESTIMATED BLOOD LOSS: Minimal.COMPLICATIONS: None.IMPLANTS USED: None.SPECIMENS: None.Surgery/Procedure Date: 03/22/2017Incision/Procedu re Start Time: 8:04 AMIncision Close/Procedure End Time: 8:21 AMSurgeon(s)/Proceduralist (s) and Shop Router(s):Surgeon(s) and Role: * Houston Awan - PrimaryRegistered Nurse Cloud Automation Tester: Araceli Velasco ([place]) Brandon was present for and performed or supervised allCritical portions of the procedureMargareth Moreno, TONM:MedQD: 03/22/2017 08:53:02T: 03/22/2017 10:00:26Job #: [id number]: Normal [facility] OPERATIVE NO HNO ID: [id number] thor: Houston AwanService: Orthopaedic SurgeryAuthor Type: PhysicianType: Operative ReportFiled: 04/18/2017 10:02 AMNote Text:[facility] HOSPITALOperative ReportORIGINATOR: JAZMINE MorenoTOMASZ WMRN: [id number] ACCTNUM: [id number]: OROR LOCATION: [place] [address]ATTENDING PHYSICIAN: Houston Awan, MDDATE OF PROCEDURE: 03/22/2017SURGEON: ANDREE MorenoURGEON: Houston Awan MDASSISTANT: Araceli Barroso, certified nurse practitioner. Noresidents or fellows available. Ms. Barroso was necessary forpositioning the patient, arthroscopic equipment assisting during thetechnical portions of the procedure.PREOPERATIVE DIAGNOSIS: 1. Primary osteoarthritis, right knee.2. Multiple loose bodies, right knee.POSTOPERATIVE DIAGNOSIS: 1. Primary osteoarthritis, right knee.2. Multiple loose bodies, right knee.OPERATION: Right knee arthroscopy, chondroplasty, and removal of multipleloose bodies.ANESTHESIA: General anesthesia.MODIFIER 22: Patient's morbid obesity, BMI greater than 35 and jointaccess more difficult.PREOPERATIVE ASSESSMENT: Tomasz is a 46-year-old who has been havingongoing problems with the feelings of instability and pain in his rightknee.Preoperative assessment had revealed some laxity of his ACL on MRI withmultiple loose bodies, severe and advanced osteoarthritis of the lateralcompartment of his knee, and in view of his symptomatology, feelings ofmechanical symptoms, we felt that an arthroscopy with removal of loosebodies might help solve some of his symptomatology. He was admitted tot [facility] [place], [facility],appropriate right extremity marked. The patient was then prepared forsurgery, given intravenous fluids, intravenous antibiotics, the patientwas then taken to the operating room.DESCRIPTION OF OPERATION: After appropriate huddles and time-outs, thepatient was given general anesthetic, supine position. Right leg wasprepped and draped in the usual manner. Pneumatic tourniquet wasinflated to 300 mmHg. Standard diagnostic arthroscopy through ananterolateral portal. Arthroscopic findings of surgery were as follows.1. Patellofemoral joint demonstrated some fraying, grade 2 to 3 changes onthe retropatellar surface and in the trochlear ridge. These weredebrided,chondroplasty performed. A significant amount of synovitis, partialsynovectomy performed. No loose bodies identified in the suprapatellarpouch.2. Medial compartment. Medial compartment was very tight, degenerativefraying of the inner meniscus, no evidence of any loose articularcartilage fragments.3. Intercondylar notch demonstrated significant pathology. On the medialfemoral condyle in the medial aspect, there was a large bone spur, butthere was also some bone spurring in the intercondylar region withmultiple loose fragments of bone impinging in extension and mobile. Softtissue dissection was performed tomobilize the loose fragments, and at least 3 to 4 large fragments wereremoved from the intercondylar area. There was a large spur on theanterior cruciate ligament intercondylar eminence which impinged inextension, and this was burred down as well. There was partial tearingof his ACL graft. This was debrided. We could visualize that the ACLgraft fibers were intact but somewhat lax.4. The lateral compartment demonstrated significant pathology. Large spuron the tibial plateau in the intercondylar eminence, amgt-rm-lbqh grade 4changes in the lateral compartment. There was a remnant of the anteriorhorn of the lateral meniscus which was torn and impinging in extension.This was resected.Underlying loose fragment of bone as well. Chondroplasty was performed ofany loose articular cartilage flaps. At the conclusion of the procedure,the knee was thoroughly irrigated. The knee was injected with Marcaine.The wounds were closed in the usual manner. Bulky compressive dressingwas applied. Pneumatic tourniquet was deflated, and the patient wastaken to the recovery room.ESTIMATED BLOOD LOSS: Minimal.COMPLICATIONS: None.IMPLANTS USED: None.SPECIMENS: None.Surgery/Procedure Date: 03/22/2017Incision/Procedu re Start Time: 8:04 AMIncision Close/Procedure End Time: 8:21 AMSurgeon(s)/Proceduralist (s) and Shop Router(s):Surgeon(s) and Role: * Houston Awan - PrimaryRegistered Nurse Cloud Automation Tester: Araceli Velasco ([place]) Brandon was present for and performed or supervised allCritical portions of the procedureHouston Awan MDAM:MedSyedaD: 03/22/2017 08:53:02T: 03/22/2017 10:00:26Revised:03/28/2017 boHDR3Rtg #: [id number]: [facility] PT EDon 03-22-2017 PT ED HNO ID: [id number] thor: Zena Franklin (Rn) Gaby Aguileraice: (none)Author Type: Registered NurseType: Patient EducationFiled: 03/22/2017 9:12 AMNote Text:POST OP LEARNING RESPONSEINSTRUCTION PROVIDED TO: Patient and family memberMETHOD OF INSTRUCTION: Written instruction - handoutsVerbal instructionPATIENT / FAMILY RESPONSE: Verbalizes understanding of: INFECTIONMANAGEMENT-Signs and symptoms of an infection and importance ofcontacting the physicianMEDICAL REGIMEN-Importance of following prescribed medical regimenFOLLOW-UP PLAN: Follow-up with Primary CareSUPPLEMENTAL MATERIAL: NoneREFERRAL (RECOMMENDATION):Shreyai jacquie Signed By: Zena Aguilera RN In Department: [facility] - [facility] NURSING PROGon 03-18-2017 NURSING PROG HNO ID: [id number] thor: Araceli JohnsonRn) Gaby Browneice: (none)Author Type: Registered NurseType: Nursing Progress NoteFiled: 03/21/2017 11:29 AMNote Text:PACC Nurse Progress NoteHistory AND Physical:PACC Visit Date: No PACC/ outside testing Dr. Joy HANDP Date: Need from PCPOutside HANDP Scanned Date: PendingLabs Within Last 6 Months:CBC: Date 03/11/17- Labs from PCP scanned in epicBMP/CMP: Date 03/11/17Imaging Within Last 12 Months:MRI Right Knee: 02/23/17X-ray Right KneeDate of test: 02/07/17Cardiac Testing:PENDING from Dr. Quezada Assessment:Medical Date: PENDINGNarrative:Lab work received from Dr. Bernal and is scanned in [facility]. Phoned Dr. Ortiz ([phone]); spoke cristian Schaefer and requested remainder oftesting. Olive will have Dr. Bernal review and will fax on Tuesday, 03/21.Phoned patient to give instructions; message left.Pre-op Considerations:pendingChar t Check:IN PROGRESS- Needs HANDP/ outside testing AND instructionsDuglas Gallagher 2016 1:28 PMADDENDUM: March 21, 2017 8:[address] Bernal scanned into [facility] with clearance noted at bottom. Stresstest from 03/17/2017, Echocardiogram from 03/18/2017, EKG, CBC and CMP from03/10/2017 scanned into [facility]. Chart check complete. Araceli Browne RN. PATIENT PREOPERATIVE INSTRUCTIONSMarymount ASC: [phone] --[address] [address].Instructions provided via phone. Patient identified by name and .Blood Thinning Medications:- Stop NSAIDS (Ibuprofen, Advil, Aleve, Motrin, Celebrex, Mobic, etc.) 7days before surgery, as directed by your surgeon.- Stop Aspirin 7 days before surgery, as directed by your surgeon.- Stop Vitamin E, ALL multi-vitamins, herbals and dietary supplements 7days before surgery.- You may take Tylenol (Acetaminophen) or any of your pain medicationsthat do not contain aspirin or NSAIDS as needed.Dietary Restrictions:- No solid food after midnight.- You may have 12 ounces of clear liquids (water, clear juices such asapple juice or gatorade, carbonated beverages, clear tea, black coffee,jello) until 2 hours before scheduled arrival at facility.Pain Medications:Medications:Ap proved medications to take the morning of surgery with a sip of water:nothingIf you start any new medications after today's visit, please contact thesurgery center above.Important Reminders:- Candy, mints, gum and tobacco products are NOT permitted the morning ofsurgery.- Hearing aids, dentures and glasses may be worn the morning of surgery.- NO jewelry, body piercings, makeup, nail mexican, hairpins or contactsare to be worn the day of surgery.If you develop symptoms such as a fever, cold, or flu, or have otherchanges to your health within TWO DAYS of scheduled surgery or the morningof surgery, please contact the surgery center above.Personal Belongings:- Leave ALL valuables and money at home or with family members.For Outpatient Procedures: - YOU MUST HAVE A RESPONSIBLE EARLY CHILDHOOD EDUCATOR AIDE TAKE YOU HOME. A TARIFF EXPERT OR CABDRIVER CANNOT BE MADE A RESPONSIBLE EARLY CHILDHOOD EDUCATOR AIDE.- We recommend that a responsible person stays with you overnight to takecare of you.- You cannot stay in a hotel alone after outpatient surgery. You will notbe permitted to have your surgery, if you do not have someone to take careof you. Arrival Time for Surgery:- The Surgery Center or hospital where you are having surgery will callthe afternoon before surgery (or Tuesday for Tuesday surgery) with ascheduled arrival time.- If you have not heard by 4 pm, please contact the surgery center above.Please be aware that emergency situations arise, which may delay or changeyour surgical time. If this happens, we will notify you as soon aspossible and regret any inconvenience.Araceil Browne RN [facility] 03-08-2017 HOSP Patient Update (SPHTB) ---------TOMASZ SHEPPARD ([id number]) 1970 MDate Time Provider Ivyhtezhye59/28/17 ARACELI BARROSO (TASSEL MAKING MACHINE OPERATOR) SPHTB During your visit today, we recorded the following information about you:Allergies As of Date: 03/08/2017(No Known Allergies)Date Reviewed: 02/23/2017Reviewed by: Tammy Jeffers Ma - Fully AssessedOrder(s):SURGICAL REQUEST - ELECTIVE [[id number]] Order #: [id number]: 1Prescriptions as of 03/08/2017 Sig: GLUCOSAMINE COMPLEX ORAL Take by mouth. PAROXETINE 40 MG TABLET Take 40 mg by mouth once madelyn* METOPROLOL TARTRATE 50 MG TAB* Take 50 mg by mouth once madelyn* ASPIRIN 81 MG CHEWABLE TABLET Take 81 mg by mouth once madelyn* MULTIVITAMIN CAPSULE Take 1 capsule by mouth once *Problem List As Of Date 03/08/2017 Noted Resolved TEAR MENISCUS NEC-CURRENT [YPY8714] INVALID FOR* MITRAL VALVE DISORDER [I05.9] INVALID FOR* ANXIETY STATE NEC [F41.1] INVALID FOR* INT DERANGEMENT KNEE NOS [M23.90] INVALID FOR* Joint loose bodies [M24.00] INVALID FOR* More... OA (osteoarthritis) of knee [M17.10] INVALID FOR* More...Disposition: Return in about 3 weeks (around 03/29/2017) for add on tueapr 13 at 10 am at [employer] with Chio.Follow-up and Disposition History RecordedEncounter Number: [id number] Status:Closed by ARACELI BARROSO CNP on 03/08/17 [facility] Patient:[place] Sheppard WMRN: Height:6' .008 (1.829 m)Weight:266 lb (120.657 kg)Outpatient Medications as of 03/22/17:GLUCOSAMINE HCL AND SULFATE (GLUCOSAMINE COMPLEX ORAL)PARoxetine (PAXIL) 40 mg tabletmetoprolol tartrate, short acting, (LOPRESSOR) 50 mg tabletaspirin 81 mg chewable tabletMultivitamin capsuleAdmission/Clinic Administered Medications as of 03/22/17:lactated ringers infusionceFAZolin 3 g in sterile water 30 mL (ANCEF)scopolamine 1 mg over 3 days 1 Patch (TRANSDERM-SCOP)scopolamin e - REMOVE PATCHscopolamine - VERIFY patchProblem List:Other tear of cartilage or meniscus of knee, current [NFB6796]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]Other anxiety states [F41.1]Unspecified internal derangement of knee [M23.90]Joint loose bodies [M24.00]OA (osteoarthritis) of knee [M17.10]Allergies:No Known AllergiesDate Verified:03/22/17Lab ValuesNo results within the last 30 days for the following basenames: K,HCTProgress Notes (ORTHOPAEDIC AND RHEUMATOLOGIC INST):Meghan Maguire 03/07/2017 3:50 PM Sapjkl94/27/17 @ 230pmTomasz's called to speak to you about PT after Tomasz's surgery.Please call to discuss when you are free.[phone] Barroso CNP 03/08/2017 10:44 AM SignedReturned callNo answerLeft message regarding physical therapy after surgery, i.e. Logistics, starts 1week after surgery,Can be done locally, also offered virtual visit for the three-week appointmentfor his everything is okayAs long as there is a provider locally to remove the sutures at 3 weeks,Patient would then see Dr. Awan at 3 months postop,Instructed to call office if there are any further questions on physicaltherapy,Or if they decide to proceed with a virtual visit at 3 weeks postopAraceli Barroso CNPPromani Notes (ORTHOPAEDIC AND RHEUMATOLOGIC INST):Meghan Maguire 03/01/2017 4:21 PM Hdpeny38/21/17 @ 200pmPatients left a VM for you that [place] has some questions for you please callto discuss.[place]- [phone] Barroso CNP 03/01/2017 6:50 PM SignedSpoke to patient and wifeSurgical arrangements madeAll questions answeredTo have local PCP to preopHistory and physical,They will call back our office with fax number to fax forms to their local PCPAraceli Barroso CNP [facility] 02-23-2017 CN Office Visit (SPHTB) ---------TOMASZ SHEPPARD ([id number]) 1970 MDate Time Provider Xjlhlkgjmc40/15/17 2:00 PM HOUSTON AWAN During your visit today, we recorded the following information about you:[place] Awan MD 02/23/2017 1:43 PM SignedReturns in follow-up of his MRIThere is evidence of advanced arthritic changes with multiple loose bodieswithin his jointIn addition to his anterior cruciate ligament today shows a very abnormalsignal although it would appear that the fibers seemed to be intactHis major symptomatology at this point in time his pain and feelings ofcatching and instability with doing any form of activitiesI'm somewhat concerned that the loose bodies may be giving him these symptomsalthough cannot rule out the fact that he has ligamentous laxity related to hisanterior cruciate ligamentUnfortunately the arthritic changes in his knee are quite advanced and we hadalong discussion today talking about some of the things that we could do to tryand delay any further major definitive surgery for this kneeHe is only 46 years of age and I don't think that a total knee arthroplastywhich she asked about is the first reasonable optionWe discussed proceeding with an arthroscopy of his knee which would achievemultiple purposesPerhaps a removing all the loose bodies and any thing that might be giving himmechanical symptoms might actually help improve resolve some of hissymptomatologyIn addition we would have the ability to view all of the articular surfaces sothat we can see the extent of the arthritic changes in his knee so we can makefurther definitive plans in the futureBy removing all the mechanical issues we can also then give consideration to adifferent types of injection therapies to help resolve his symptomatologyAfter full lengthy discussion he recognizes that that arthroscopy may nottotally resolve his symptoms but he agreed that we should proceed with this atthis point in time remove any loose bodies debridement any loose articularcartilage or meniscal tissue evaluate all the structures within his knee jointand do any arthroscopic surgery that might be necessary at that timeI spent 15 minutes in the visit, with more than 50% of the total yaxq-cx-crtbbelf of the visit in counseling / coordination of care.Referring Provider: SELF [[id number]]Allergies As of Date: 02/23/2017(No Known Allergies)Date Reviewed: 02/23/2017Reviewed by: Tammy Jeffers Ma - Fully AssessedReason for Visit: Follow Up For [3040] Cmt: Right knee MRI review. Pain is a 1-2 out of ten today. Higher with more activityPrimary Visit Diagnosis:Primary osteoarthritis of right knee [M17.11] Other Visit Diagnosis:Loose body in knee, right [M23.41]Prescriptions as of 02/23/2017 Sig: GLUCOSAMINE COMPLEX ORAL Take by mouth. PAROXETINE 40 MG TABLET Take 40 mg by mouth once madelyn* METOPROLOL TARTRATE 50 MG TAB* Take 50 mg by mouth once madelyn* ASPIRIN 81 MG CHEWABLE TABLET Take 81 mg by mouth once madelyn* MULTIVITAMIN CAPSULE Take 1 capsule by mouth once *Problem List As Of Date 02/23/2017 Noted Resolved TEAR MENISCUS NEC-CURRENT [BRW1089] INVALID FOR* MITRAL VALVE DISORDER [I05.9] INVALID FOR* ANXIETY STATE NEC [F41.1] INVALID FOR* INT DERANGEMENT KNEE NOS [M23.90] INVALID FOR* Status:Closed by HOUSTON AWAN MD on 02/23/17 Normal [facility] MRI KNEE WO IVCON RTon 02-23 MRI KNEE WO IVCON RT * * *Final Report* * *DATE OF EXAM: Feb 23 2017 12:32PM [facility] 0213 - MRI KNEE WO IVCON RT / REASON: Unilateral post-traumatic osteoarthritis, right knee * * * * Physician Interpretation * * * * EXAMINATION: MR RIGHT KNEE WITHOUT CONTRASTHISTORY: Unilateral post-traumatic osteoarthritis, right knee Right knee pain with episodes of locking and catching. Please evaluate for possible loose body or meniscal damage. 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 MR 05/09/2005.RESULT:MENISCI:M edial Meniscus: Degenerative changes without tearLateral Meniscus: Not present, likely secondary to severe degeneration or prior surgery.LIGAMENTS:ACL: Intact with mucoid degenerationPCL: IntactMCL: IntactLCL Complex: IntactCARTILAGE:Medial Femoral Condyle: Large area(s) of low grade (<50% thickness) partial thickness cartilage loss/fissuring . There may be a focal deep or cartilage fissure at the medial margin of the condyle.Medial Tibial Plateau: NormalLateral Femoral Condyle: Diffuse full thickness cartilage loss/fissuring with osteophytes and subchondral cystic changesLateral Tibial Plateau: Large area(s) of full thickness cartilage loss/fissuring with osteophytes and extensive subchondral cystic changesPatella: Single high grade (>50% thickness) cartilage fissure medial facetTrochlea: NormalTENDONS: The distal quadriceps and patellar tendons are intact. The popliteus tendon is intact.BONES AND MARROW: Tricompartment osteophytes with extensive subchondral cystic changes especially in the lateral compartment. Postsurgical changes near the lateral tibial spine from bone graft 4 meniscal transplant. Small ossicles are noted in the expected location of the anterior and posterior lateral meniscal roots.MUSCLES: Muscle bulk and signal intensity are normal.JOINT FLUID AND SYNOVIUM: Small joint effusion. Mild synovitis. No Sutton's cyst. Multiple loose bodies within the joint posteriorly with the largest measuring 1.5 x 0.8 cm.IMPRESSION:SEVERE RIGHT KNEE OSTEOARTHRITIS, MOST SEVERE IN THE LATERAL COMPARTMENT. ESSENTIALLY ABSENT THE LATERAL MENISCUS.Finished Carpet Inspector: JOE Transcribe Date/Time: Feb 23 2017 2:08PDictated by : LAMIN STALEY MDThis examination was interpreted and the report reviewed and electronically signed by: LIN WEAVER MD on Feb 23 2017 7:32PM [id number] Normal [facility] PROGRESSon 02-23-2017 PROGRESS HNO ID: [id number] thor: Houston MiniaciService: (none)Author Type: PhysicianType: Progress NotesFiled: 02/23/2017 1:43 PMNote Text:Returns in follow-up of his MRIThere is evidence of advanced arthritic changes with multiple loose bodieswithin his jointIn addition to his anterior cruciate ligament today shows a very abnormalsignal although it would appear that the fibers seemed to be intactHis major symptomatology at this point in time his pain and feelings ofcatching and instability with doing any form of activitiesI'm somewhat concerned that the loose bodies may be giving him thesesymptoms although cannot rule out the fact that he has ligamentous laxityrelated to his anterior cruciate ligamentUnfortunately the arthritic changes in his knee are quite advanced and wehad along discussion today talking about some of the things that we coulddo to try and delay any further major definitive surgery for this kneeHe is only 46 years of age and I don't think that a total kneearthroplasty which she asked about is the first reasonable optionWe discussed proceeding with an arthroscopy of his knee which wouldachieve multiple purposesPerhaps a removing all the loose bodies and any thing that might be givinghim mechanical symptoms might actually help improve resolve some of hissymptomatologyIn addition we would have the ability to view all of the articularsurfaces so that we can see the extent of the arthritic changes in hisknee so we can make further definitive plans in the futureBy removing all the mechanical issues we can also then give considerationto a different types of injection therapies to help resolve hissymptomatologyAfter full lengthy discussion he recognizes that that arthroscopy may nottotally resolve his symptoms but he agreed that we should proceed withthis at this point in time remove any loose bodies debridement any loosearticular cartilage or meniscal tissue evaluate all the structures withinhis knee joint and do any arthroscopic surgery that might be necessary atthat timeI spent 15 minutes in the visit, with more than 50% of the lqvafreui-fq-fxuh time of the visit in counseling / coordination of care. Normal [facility] PROGRESS HNO ID: [id number] thor: Gadiel Tyler Mri-TService: (none)Author Type: (none)Type: Progress NotesFiled: 02/23/2017 12:13 PMNote Text: Radiology Service Progress NotePATIENT NAME: Tomasz AcuñasilviazMRN: [id number] OF SERVICE: February 23, 2017TIME: 12:12 PMPATIENT IDENTITY VERIFICATION COMPLETED USING TWO (2) METHODS: Patientconfirmed name verbally and Date of .PATIENT GENDER DATA: MalePATIENT RELEVANT IMPLANT DATA REVIEWED: YesRADIOLOGY DEPARTMENT: MR; Exam(s) Completed: Lower MSK: Knee, rightPERIPHERAL IV DATA: Not applicableSIGNED BY: Gadiel Tyler Mri-TNoveraudel 2016 12:12 PM Normal [facility] CNOVon 02-07-2017 CNOV Office Visit (SPRTMN) TOMASZ SHEPPARD ([id number]) 1970 MDate Time Provider Wfntqathaj23/30/17 2:00 PM HOUSTON AWAN During your visit today, we recorded the following information about you: Weight Height 122.5 kg 1.829 Harleen Kaur MD 02/07/2017 3:50 PM SignedNew Patient appointment. Patient previously seen in 2005.History of present illness: Tomasz Sheppard is a 46 year old male who comesin today with a chief complaint of right knee pain. The pain is constant andaching. This pain has been present for 3-5 years. This pain occurred with thefollowing preceding injury: None . Yes pain with stairs. Yes pain withsquatting. Yes pain at night. Patient has Yes swelling. No popping/clicking. Yes locking. No giving way. Prior treatment Right knee lateral meniscaltransplant [place] [address] Awan. Patient did well until suffering injury andtear of meniscal transplant in 2005, treated with partial lateral meniscectomyand debridement. Patient presently occasionally uses NSAIDs for pain. Has nothad any cortisone injections or other therapies. Works on [employer] and [employer] for [employer] and walks approximately 5-8 miles per day at work.ALLERGIESNo Known AllergiesNo past medical history on file.No past surgical history on file.No current outpatient prescriptions on file prior to visit.No current facility-administered medications on file prior to visit.No family history on file.Social History Marital status: Spouse name: Years of education: Number of children:Social History Main Topics Smoking status: Never SmokerREVIEW OF SYSTEMS: 14 point review of systems is personally reviewed by me andis negative other than what has been mentioned above.Physical Examination: This is a well appearing, well nourished patient in noacute distress. Patient's head is normocephalic and atraumatic. Patient haswhite sclera and pink conjunctiva. Mucous membranes are moist. Patientbreathes easily and has normal chest wall excursion. Patient has a normalaffect. Body habitus overweight.Focused exam of the knee: Antalgic gait. Knee alignment: valgus . Flexioncontracture: 5 degrees. Range of motion is 0/5/110. Yes pain withpatellofemoral compression. Yes pain along medial and lateral facets. Yeseffusion. No quadriceps atrophy. Yes patellofemoral crepitance. Yes medialjoint line pain on palpation. No lateral joint line pain on palpation.Ligamentous exam is negative . Nikolay's negative .Imaging: Plain films from [facility] are personally reviewed by me anddemonstrate severe lateral compartment degenerative changes of right knee aswell as spurring of patellofemoral joint, particularly along medial trochlea.Procedure: NoneImpression: Tomasz Sheppard is a 46 year old male with right kneepost-traumatic osteoarthritis.Plan:1. We would like the patient to obtain an MRI to ascertain if his symptoms inregards to locking and not being fully able to extend are related to a loosebody. If so, he may obtain some relief with arthroscopy, loose body removal anddebridement.2. If MRI demonstrates the patient's symptoms are primarily due toosteoarthritis we will begin to have a discussion about his various optionsstarting with injection therapies.3. Return to clinic after completion of MRI.Margareth Edmondson MD 02/07/2017 3:50 PM SignedI discussed the management of with the fellow. I have reviewed the fellow'snote and agree with the documented findings and plan of care.Sofiya Ritchie Provider: HOUSTON AWAN [3044]Allergies As of Date: 02/07/2017(No Known Allergies)Date Reviewed: 02/07/2017Reviewed by: Nayely Ann Ma - Fully AssessedReason for Visit: Right Knee Pain [1209]Primary Visit Diagnosis:Post-traumatic osteoarthritis of right knee [M17.31]Order(s):MRI KNEE WO IVCON RT [[id number]] Order #: [id number] FUTUREPrescriptions as of 02/07/2017 Sig: PAROXETINE 40 MG TABLET Take 40 mg by mouth once madelyn* METOPROLOL TARTRATE 50 MG TAB* Take 50 mg by mouth once madelyn* ASPIRIN 81 MG CHEWABLE TABLET Take 81 mg by mouth once madelyn* MULTIVITAMIN CAPSULE Take 1 capsule by mouth once *Problem List As Of Date 02/07/2017 Noted Resolved TEAR MENISCUS NEC-CURRENT [[id number]] INVALID FOR* MITRAL VALVE DISORDER [I05.9] INVALID FOR* ANXIETY STATE NEC [F41.1] INVALID FOR* INT DERANGEMENT KNEE NOS [M23.90] INVALID FOR*Medications Discontinued During This Encounter AUGMENTIN 500-125 TABLET 0 04/06/2004 02/07/2017 Class: Historical Med Route: ORAL Sig: UNSURE OF DOSE 04/06 LAST DOSE Disc: Discontinued by another Health Care Provider PAXIL 30 MG TABLET 0 04/06/2004 02/07/2017 Class: Historical Med Route: ORAL Sig: Take one(1) tablet daily. Disc: Discontinued by another Health Care ProviderEncounter Number: [id number] Status:Closed by HOUSTON AWAN MD on 02/07/17 Normal [facility] PROGRESSon 02-07-2017 PROGRESS HNO ID: [id number] thor: [place] AwanSer: (none)Author Type: PhysicianType: Progress NotesFiled: 02/07/2017 3:50 PMNote Text:I discussed the management of with the fellow. I have reviewed thefellow's note and agree with the documented findings and plan of care.Cristofer Awan MD [facility] PROGRESS HNO ID: [id number] thor: Ankit Levin) Pilar: (none)Author Type: FellowType: Progress NotesFiled: 02/07/2017 3:50 PMNote Text:New Patient appointment. Patient previously seen in 2005.History of present illness: Tomasz Sheppard is a 46 year old male whocomes in today with a chief complaint of right knee pain. The pain isconstant and aching. This pain has been present for 3-5 years. This painoccurred with the following preceding injury: None . Yes pain withstairs. Yes pain with squatting. Yes pain at night. Patient has Yesswelling. No popping/clicking. Yes locking. No giving way. Priortreatment Right knee lateral meniscal transplant [place] [address] Awan.Patient did well until suffering injury and tear of meniscal transplant ss8515, treated with partial lateral meniscectomy and debridement. Patientpresently occasionally uses NSAIDs for pain. Has not had any cortisoneinjections or other therapies. 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.ALLERGIESNo Known AllergiesNo past medical history on file.No past surgical history on file.No current outpatient prescriptions on file prior to visit.No current facility-administered medications on file prior to visit.No family history on file.Social History Marital status: Spouse name: Years of education: Number of children:Social History Main Topics Smoking status: Never SmokerREVIEW OF SYSTEMS: 14 point review of systems is personally reviewed by and is negative other than what has been mentioned above.Physical Examination: This is a well appearing, well nourished patient inno acute distress. Patient's head is normocephalic and atraumatic.Patient has white sclera and pink conjunctiva. Mucous membranes aremoist. Patient breathes easily and has normal chest wall excursion.Patient has a normal affect. Body habitus overweight.Focused exam of the knee: Antalgic gait. Knee alignment: valgus .Flexion contracture: 5 degrees. Range of motion is 0/5/110. Yes pain withpatellofemoral compression. Yes pain along medial and lateral facets. Yeseffusion. No quadriceps atrophy. Yes patellofemoral crepitance. Yesmedial joint line pain on palpation. No lateral joint line pain onpalpation. Ligamentous exam is negative . Nikolay's negative .Imaging: Plain films from [facility] are personally reviewed by johnathon demonstrate severe lateral compartment degenerative changes of rightknee as well as spurring of patellofemoral joint, particularly alongmedial trochlea.Procedure: NoneImpression: Tomasz Sheppard is a 46 year old male with right kneepost-traumatic osteoarthritis.Plan:1. We would like the patient to obtain an MRI to ascertain if his symptomsin regards to locking and not being fully able to extend are related to aloose body. If so, he may obtain some relief with arthroscopy, loose bodyremoval and debridement.2. If MRI demonstrates the patient's symptoms are primarily due toosteoarthritis we will begin to have a discussion about his variousoptions starting with injection therapies.3. Return to clinic after completion of MRI.Ankit Karu MD Normal [facility] PROGRESS HNO ID: [id number] thor: Henny Vuong RtService: (none)Author Type: (none)Type: Progress NotesFiled: 02/07/2017 1:26 PMNote Text: Radiology Service Progress NotePATIENT NAME: Tomasz ShipmanzMRN: [id number] OF SERVICE: February 07, 2017TIME: 1:23 PMPATIENT IDENTITY VERIFICATION COMPLETED USING TWO (2) METHODS: Patientconfirmed name verbally and Date of .PATIENT GENDER DATA: MalePATIENT RELEVANT IMPLANT DATA REVIEWED: YesRADIOLOGY DEPARTMENT: General X-ray: Exam(s) Completed: Lower ExtremityX-Ray(s): Knee, AP / Lat / Tunne / Merchant Right and Wt. Bearing:PERIPHERAL IV DATA: Not applicableSIGNED BY: Henny Vuong RtFebruary 07, 2017 1:23 PM Normal [facility] XR KNEE 4V AP/PA BOTH+LAT/ME R RTon 02-07-2017 XR KNEE 4V AP/PA BOTH+LAT/ASHLEY RT * * *Final Report* * *DATE OF EXAM: Feb 07 2017 1:14PM AOX [id number] - XR KNEE 4V AP/PA BOTH+LAT/ASHLEY RT / REASON: Pain, unspecified * * * * Physician Interpretation * * * * EXAMINATION: XR KNEE 4V AP/PA BOTH+LAT/ASHLEY RTHISTORY: SURGERY ON RIGHT KNEE IN THE PAST. PAIN AND SWELLING THIS PAST YEAR. Pain, unspecified .TECHNIQUE: XR KNEE 4V AP/PA BOTH+LAT/ASHLEY RT Laterality: RIGHT Number of different views (projections): 4 M: [id number]:None.RESULT : No acute fracture or dislocation. There is severe narrowing of lateral joint compartment. Lateral and patellofemoral osteophytosis. Small evidence of right knee joint effusion.IMPRESSION: RIGHT KNEE OSTEOARTHRITIS DESCRIBED.Finished Carpet Inspector : JOE Transcribe Date/Time: Feb 07 2017 3:27PDictated by : EUGENE NICHOLS MDThis examination was interpreted and the report reviewed and electronically signed by: EUGENE NICHOLS MD on Feb 07 2017 3:28PM [id number] Normal [facility] Encounters Encounter Date Encounter Type Care Provider Facility Start: 04-21-2022 Encounter for genera l adult medical examination without abnormal findings DR ARIADNA BERNAL [facility] Start: 04-20-2022 End: 04-20-[address] ARIADNA BERNAL Facility: Start: 04-17-2022 End: 04-18-[address] ARIADNA BERNAL Facility: Start: 04-17-2022 End: 04-18-2022 Encounter for general adult medical examination without abnormal findings DR ARIADNA BERNAL Facility: Start: 06-08-2017 End: 06-08-[address] [facility] Start: 04-29-2017 End: 04-30-2017 Ambulatory [facility] Start: 04-26-2017 End: 04-27-2017 Ambulatory [facility] Start: 04-22-2017 End: 04-23-2017 Ambulatory [facility] Start: 04-19-2017 End: 04-20-2017 Ambulatory [facility] Start: 04-15-2017 End: 04-16-2017 Ambulatory [facility] Start: 04-13-2017 End: 04-13-2017 Ambulatory ARACELI VELASCO MYNOR CHIO [facility] Start: 04-12-2017 End: 04-13-2017 Ambulatory [facility] Start: 04-08-2017 End: 04-09-2017 Ambulatory [facility] Start: 04-06-2017 End: 04-07-2017 Ambulatory [facility] Start: 03-30-2017 End: 03-31-2017 Ambulatory [facility] Start: 03-30-2017 End: 03-31-2017 Ambulatory [facility] Facility:[facility] Start: 03-22-2017 End: 03-22-2017 Ambulatory [facility] Start: 02-23-2017 End: 02-23-[address] [facility] Start: 02-07-2017 End: 02-07-[address] [facility] Procedures Date Procedure Procedure Detail Performing Clinician Start: 04-17-[address] ASHLEY BERNAL Comment on above: Performed By: #### P [facility] #### [facility] [address] [place], [place] [address] Dr. Lucia Ellis Payers Date Payer Category Payer Unknown [id number] 1970 Unknown [id number] 1970 Unknown [id number] 1958 Unknown [id number] Unknown Summary Purpose Family History No Family History Records FoundNo Family History Records FoundNo Family History Records FoundNo Family History Records FoundNo Family History Records Found Advance Directives No Advanced Directives Records FoundNo Advanced Directives Records FoundNo Advanced Directives Records FoundNo Advanced Directives Records FoundNo Advanced Directives Records Found Additional Source Comments (unrecognized sect ion and content) No Status Records FoundNo Status Records FoundNo Status Records FoundNo Status Records FoundNo Status Records Found INFORMATION SOURCE (unrecogn ized section and content) DATE CREATED AUTHOR 09/30/2017 [facility] DATE CREATED AUTHOR AUTHOR'S ORGANIZ ATION 10/03/2017 Berna spence DATE CREATED AUTHOR [facility] AT[facility] DATE CREATED AUTHOR AUTHOR'S ORGANIZ ATION 10/04/2017 [facility] [place] DATE CREATED AUTHOR AUTHOR'S ORGANIZ ATION 04/22/2022 [facility] FOR RECORDS PERTAINING TO PATIENTS WHO ARE OR HAVE BEEN ENROLLED IN A CHEMICAL DEPENDENCY/SUBSTANCEABUSE PROGRAM, SOME INFORMATION MAY BE OMITTED. This clinical summary was aggregated from multiple sources. Caution should be exercised in using it in the provision of clinical care. This summary normalizes information from multiple sources, and as a consequence, information in this document may materially change the coding, format and clinical context of patient data. In addition, data may be omitted in some cases. CLINICAL DECISIONS SHOULD BE BASED ON THE PRIMARY CLINICAL RECORDS. [employer] [facility]. provides no warranty or guarantee of the accuracy or completeness of information in this document.
[2023-05-20 08:49] LABS: Basophils Absolute Auto 0.1 10^3/uL (0.0-0.1); Basophils Percent Auto 0.8 % (0.2-2.0); Eosinophils Absolute Auto 0.3 10^3/uL (0.0-0.7); Hematocrit 40.9 % (42.0-54.0); Hemoglobin 13.5 g/dL (14.0-18.0); Immature Granulocytes Abs Auto 0.05 10^3/uL (0.00-0.03); Immature Granulocytes Pct Auto 0.8 % (0.0-0.5); Lymphocytes Absolute Auto 2.5 10^3/uL (1.2-3.8); Lymphocytes Percent Auto 39.6 % (20.5-60.0); Mean Corpuscular Hemoglobin 29.9 pg (25.9-34.0); Mean Corpuscular Volume 90.7 fL (80.0-94.0); Mean Platelet Volume 9.6 fL (9.5-13.5); Monocytes Absolute Auto 0.6 10^3/uL (0.3-0.8); Monocytes Percent Auto 9.3 % (1.7-12.0); Neutrophils Absolute Auto 2.8 10^3/uL (1.4-6.5); Neutrophils Percent Auto 44.5 % (43.0-75.0); Platelet Count 253 10^3/uL (150-450); Red Blood Count 4.51 10^6/uL (4.70-6.10); Red Cell Distribution Width 12.7 % (11.0-15.0); White Blood Count 6.2 10^3/uL (4.0-11.0)
[2023-05-20 09:25] LABS: Alanine Aminotransferase 35 U/L (16-63); Albumin Level 3.4 g/dL (3.4-5.0); Alkaline Phosphatase 47 U/L (46-116); Anion Gap 9.9; Aspartate Amino Transferase 15 U/L (15-37); Bilirubin Total 0.3 mg/dL (0.2-1.0); Calcium 8.4 mg/dL (8.5-10.1); Carbon Dioxide 27.2 mmol/L (21.0-32.0); Chloride 107 mmol/L (98-107); Cholesterol 192 mg/dL (<=200); Estimated GFR (African America >60 (>=60); Estimated GFR (Non-African Ame >60 (>=60); Globulin 3.3 g/dL; Glucose 108 mg/dL (74-106); HDL Cholesterol 48 mg/dL (40-60); Potassium 4.1 mmol/L (3.5-5.1); Sodium 140 mmol/L (136-145); Thyroid Stimulating Hormone 1.673 uIU/mL (0.358-3.740); Total Protein 6.7 g/dL (6.4-8.2); Triglycerides 152 mg/dL (<=150); VLDL CHOLESTEROL 30.4 mg/dL
[2023-05-20 09:40] LABS: Estimated Average Glucose 105 mg/dL; Glycohemoglobin A1C 5.3 % (4.5-6.2)
== END 2023-05-20 08:14 | disposition home or self-care (01) ==
LOC: LAB 08:13
PROVIDERS: PCP Family Medicine; Visit Provider Family Medicine
DX: Z00.00 Encounter for general adult medical examination without abnormal findings (principal)
CPT/HCPCS: 36415; 80053; 80061; 83036; 84436; 84443; 84481; 85025; G0103

== ENCOUNTER 2024-05-25 14:37 | Outpatient (OUT) | payer BC, SELFPAY ==
--- NOTE | 2024-05-25 14:43 | XR_ITS ---
[address] [address] Patient Name: KALINA SHEPPARD MRN: [id number] date: 1970 Sex: M Assigned Patient Location: [facility] Current Patient Location: Accession/Order Number: [id number] Exam Date: 05/25/2024 14:50 Report Date: 05/26/2024 08:42 At the request of: ARIADNA KWON Procedure: XR knee RT 3V PROCEDURE: XR knee RT 3V COMPARISON: None. HISTORY: Knee Pain FINDINGS: BONES:No acute fracture or dislocation. Severe tricompartmental osteoarthropathy with uncovertebral articulation of the lateral compartment. Marginal osteophyte formation SOFT TISSUES:Negative. No visible soft tissue swelling. EFFUSION:Moderate joint effusion OTHER: Negative. XR/XR knee RT 3V IMPRESSION: Severe osteoarthritis. Electronically authenticated by: YARED VARGAS Date: 05/26/2024 08:42
--- NOTE | 2024-05-25 14:43 | XR_ITS ---
The [address] [address] Patient Name: KALINA SHEPPARD MRN: [id number] date: 1970 Sex: M Assigned Patient Location: [facility] Current Patient Location: [facility] Accession/Order Number: [id number] Exam Date: 05/25/2024 14:50 Report Date: 05/26/2024 08:46 At the request of: ARIADNA KWON Procedure: XR ribs RT min 3V w CXR1V EXAMINATION: XR ribs RT min 3V w CXR1V HISTORY: Rib Pain COMPARISON: No relevant comparison available. FINDINGS: LUNGS: No significant pulmonary parenchymal abnormalities. PLEURA: No pneumothorax, effusion, or pleural thickening. MEDIASTINUM: No visible mass or adenopathy. CARDIAC: No cardiomegaly or cardiac silhouette abnormality. RIBS: Fracture of the right posterior seventh rib seen on image #5 OTHER: Negative. XR/XR ribs RT min 3V w CXR1V IMPRESSION: Right posterior seventh rib fracture. Electronically authenticated by: YARED VARGAS Date: 05/26/2024 08:46
--- OUTSIDE RECORDS SUMMARY | 2024-05-25 14:48 | XMS_ITS | CCD ---
Author Organization [facility] Inform ion Partnership [facility] Care Team Providers Care Intelligence Analyst Name Role Phone MINIACI, ZAHEER Unavailable Unavailable MINIACI, ZAHEER Unavailable Unavailable MINIACI, ZAHEER Unavailable Unavailable MINIACI, ZAHEER Unavailable Unavailable ARACELI BARROSO ([facility]) Unavailable Unavai lable MINIACI, ZAHEER Unavailable Unavailable MINIACI, ZAHEER Unavailable Unavailable MINIACI, ZAHEER Unavailable Unavailable MINIACI, ZAHEER Unavailable Unavailable TIFFANY MALIK Unavailable Unavailable MINIACI, ZAHEER Unavailable Unavailable MINIACI, ZAHEER Unavailable Unavailable MINIACI, ZAHEER Unavailable Unavailable MINIACI, ZAHEER Unavailable Unavailable MINIACI, ZAHEER Unavailable Unavailable MINIACI, ZAHEER Unavailable Unavailable MINIACI, ZAHEER Unavailable Unavailable MINIACI, ZAHEER Unavailable Unavailable MINIACI, ZAHEER Unavailable Unavailable MINIACI, ZAHEER Unavailable Unavailable PHYSICIAN, DEFAULT Unavailable Unavailable PHYSICIAN, DEFAULT Unavailable Unavailable ARIADNA BERNAL Unavailable Unavailable DR ARIADNA BERNAL Attending Unavailable DR ARIADNA BERNAL Admitting Unavailable DR ARIADNA BERNAL Primary Care Unavailable DR ARIADNA BERNAL Consulting Unavailable DR ARIADNA BERNAL Admitting Unavailable DR ARIADNA BERNAL Primary Care Unavailable DR ARIADNA BERNAL Consulting Unavailable DR ARIADNA BERNAL Attending Unavailable Ariadna Bernal Primary Care Physician Michelle Austin Attending Unavailable Elida Ovalles Attending Unavailable Ariadna Bernal MD Primary Care Provider BELINDA CHEUNG Attending Unavailable DONYA CORADO Attending Unavailable Allergies Allergy Classification Reported Allergen(s) Allergy Type Date of Onset Reaction(s) Facility (3 sources) Penicillin; Translations: [penicillin] Drug Allergy Anaphylaxis (disorder) [facility] (1 source) No Known Medication Allergies; Translations: [No Known Medication Allergies] Propensity to adverse reactions (disorder) [facility] Repository (3 sources) Amoxicillin Drug Allergy 4 [facility] Medications Current Medications Medication Drug Class(es) Dates Sig (Normalized) Sig (Original) aspirin 81 mg delayed release oral tablet (3 sources) Platelet Aggregation Inhibitor, Nonsteroidal Anti-inflammatory Drug aspirin 81 MG EC tablet 1 (one) time each day at the same time Active [id number] 0.3 ml EPINEPHrine 1 mg/ml auto-injector (8 sources) alpha-Adrenergic Agonist, beta-Adrenergic Agonist, Catecholamine Start: 10-26-2023 End: 10-25-2024 EPINEPHrine (Epipen) 0.3 MG/0.3ML injection syringe Indications: Anaphylaxis, initial encounter Inject 0.3 mL (0.3 mg) as directed if needed for anaphylaxis Call 911 after use. 2 each 1 10/26/2023 10/25/2024 Active Start: 06-05-2023 EPINEPHrine (E pipen) 0.3 MG/0.3ML injection syringe use DIRECTED. 06/05/2023 Active Start: 06-04-2023 EpiPen 2-Mahendra 0 .3 mg injectable kit 0.3 mg = 1 EA, IntraMuscular, As Directed, PRN Anaphylaxis, # 1 EA, Refills(s) 0 Start Date: 06/04/23 Status: Ordered ferrous sulfate 325 mg oral tablet (3 sources) ferrous sulfate 325 (65 Fe) MG tablet 1 (one) time each day at the same time Active JAUORA-[id number]-[id number] -HYAL PO (3 sources) GLUCOS-CHONDROIT -CO LLAG-HYAL PO as directed Orally Active 24 hr metoprolol succinate 50 mg extended release oral tablet (3 sources) beta-Adrenergic Stephanie metoprolol succinate XL (Toprol-XL) 50 MG 24 hr tablet TAKE 1 TABLET DAILY for 90 Active Multiple Vitamins-Minerals (Multi Adult Gummies) chewable tablet (3 sources) Multiple Vitamins-Minerals (Multi Adult Gummies) chewable tablet as directed Orally Active PARoxetine hydrochloride 30 mg oral tablet (3 sources) Serotonin Reuptake Inhibitor PARoxetine (Paxil) 30 MG tablet TAKE 1 TABLET DAILY for 90 Active predniSONE 50 mg oral tablet (2 sources) Start: 4 End: 4 take 1 tablet by mouth once daily predniSONE 50 mg Tab 50 mg = 1 tab(s), Oral, Daily, X 5 day(s), # 5 tab(s), Refills(s) 0 Start Date: 06/04/23 Stop Date: 06/09/23 Status: Ordered Problems Problem Classification Problem Date Documented Da te Episodic/Chronic Allergic reactions (1 source) Anaphylactic shock, unspecified, initial encounter; Translations: [Anaphylactic shock, unspecified, initial encounter] Onset: 06-04-2023 Episodic Osteoarthritis (1 source) Unilateral post-traumatic osteoarthritis, right [...] malignant neoplasm of prostate] Onset: 04-20-2022 Episodic Other skin disorders (2 sources) Inflamed seborrheic keratosis; Translations: [Inflamed seborrheic keratosis] 01-25-2024 Episodic Unclassified (1 source) Pain, unspecified; Translations: [Pain, unspecified] Onset: 02-07-2017 Unclassified (1 source) Unknown / UNK(Unknown) Onset: 04-13-2017 Results Test Name Value Interpretation Reference Range Facility No Panel Informationon 01-24 [facility] Formson 06-06-2023 Forms [id number] Normal [facility] Discharge Instructionson Discharge Instructions [id number] F Normal [facility] Family Medicine Office/Clini c Noteon 06-05-2023 Family Medicine Office/Clinic Note History of Present Illness KALINA SHEPPARD is a 52 Years White Male presenting to [facility] with allergic reaction Patient came in with his today with labored breathing, facial swelling, redness in the face, diffuse itching after being in close contact with Augmentin Of note, patient is allergic to penicillin Patient does not have an EpiPen at home is currently taking Augmentin for infection patient states having oral sex when symptoms began symptoms began 1 hour prior to arrival at CC Benadryl 75 mg PO was given en route to CC by at 1255 pm patient currently having difficulty breathing Review of Systems Negative except as above Physical Exam Vitals & Measurements T: 36.8 ?C(Oral) HR: 92(Peripheral) RR: 22 BP: 136/94 SpO2: 97% Gen: No acute distress, sitting comfortably in chair HEENT: Atraumatic, PERRL, posterior pharynx clear, moist mucous membranes, no edema of uvula Cardio: RRR, no murmur/rubs/gallops Resp: Decreased air entry, no wheezing/rales/rhonchi, +labored breathing, unable to complete full sentences, concerning for tripoding Skin: Facial edema with erythema Assessment/Plan 1. Drug-induced anaphylaxis (T78.2XXA: Anaphylactic shock, unspecified, initial encounter) Patient came in with labored breathing, facial edema, diffuse rash, and difficulty breathing. I saw the patient in the waiting room and noted decreased air entry into the lungs. He was immediately taken into an exam room. Patient was given 75 mg of Benadryl PO per en route to the [facility] at 1255pm. IM Epinephrine 0.3 mg was given here to patient at 123pm. Patient's symptoms started improving after epinephrine was given. We did not have Solumedrol or Pepcid available in office to give to patient at the time. EMS arrived and patient was taken to [facility] for further management. Adverse effect of unspecified drugs, medicaments and biological substances, initial encounter (T50.905A: Adverse effect of unspecified drugs, medicaments and biological substances, initial encounter) Follow-up With When Contact Information Elida Ovalles MD, FAM, MED Only if needed [address] [place] [phone] Additional Instructions: Problem List/Past Medical History Ongoing Drug-induced anaphylaxis Historical No qualifying data Medications EpiPen 2-Mahendra 0.3 mg injectable kit, 0.3 mg= 1 EA, IntraMuscular, As Directed, PRN predniSONE 50 mg Tab, 50 mg= 1 tab(s), Oral, Daily Allergies penicillin (Anaphylaxis) Social History Alcohol - High Risk, 06/04/2023 Current, Beer, Daily, 06/04/2023 Substance Abuse - Denies Substance Abuse, 06/04/2023 Tobacco - Denies Tobacco Use, 06/04/2023 [facility] Comment on above: Result Comment: Elec tronically Signed By: Elida Ovalles MD\.br\Date and Time Signed: 06/05/23 09:24 EST Outside Recordson 06-05-2023 Outside Records [id number] F [facility] Consent for Treatmenton 05-13 Consent for Treatment [id number] [facility] ED Clinical Summaryon 2023 ED Clinical Summary (Inserted Image. Dulce ble to display) [address] [address] ED Clinical Summary Person Information Name: KALINA SHEPPARD [facility] Age: 52 Years : 1970 Sex: Male Language: Polish PCP: Ariadna Bernal MD Marital Status: Visit Id: Visit Reason: Difficulty swallowing; Lip swelling; Allergic reaction - major; allergic reaction Speciality: Acuity: 1 Enc Type: Emergency Med Service: Emergency Arrival: 06/04/2023 13:48:04 Discharge: 06/04/2023 19:28:38 LOS: 000 05:40 Checkin: 06/04/2023 13:48:04 Checkout: 06/04/2023 19:28:38 Dispo Type: Home (Routine DC) EVENTS: Event Name Event Status Request Date/Time Start Date/Time Complete Date/Time Arrive Complete 06/04/2023 13:48:04 06/04/2023 13:48:04 06/04/2023 13:48:04 Document Home Meds Request 06/04/2023 13:48:04 Triage Complete 06/04/2023 13:48:04 06/04/2023 14:02:22 06/04/2023 14:02:22 Bed Assign Complete 06/04/2023 13:48:53 06/04/2023 13:48:53 06/04/2023 13:48:53 Dr Exam Complete 06/04/2023 13:48:53 06/04/2023 13:53:24 06/04/2023 13:53:24 RN Exam Complete 06/04/2023 13:48:53 06/04/2023 14:01:41 06/04/2023 14:01:41 Registration Complete 06/04/2023 13:53:24 06/04/2023 13:57:19 06/04/2023 13:57:19 Reg Complete Request 06/04/2023 13:57:19 Reg Bed Request Complete 06/04/2023 13:57:19 06/04/2023 13:57:19 06/04/2023 13:57:19 Meds Admin Request 06/04/2023 14:03:16 Discharge Complete 06/04/2023 19:13:11 06/04/2023 19:28:43 06/04/2023 19:28:43 Transfer Complete 06/04/2023 19:28:43 06/04/2023 19:28:43 06/04/2023 19:28:43 ADDRESS: [address] [place] [phone] PHYS DOC NOTES: MEDICAL INFORMATION: Prescriptions Given: New Medications Printed Prescriptions epinephrine (EpiPen 2-Mahendra 0.3 mg injectable kit) 1 Each Intramuscular As Directed as needed Anaphylaxis. Refills: 0. predniSONE (predniSONE 50 mg Tab) 1 Tablets By Mouth every day for 5 Days. Refills: 0. PATIENT EDUCATION INFORMATION: Instructions: Anaphylactic Reaction, Adult Follow up: With: Address: When: Ariadna Bernal [address] [place] [address], [place] [address] Business (1) In 3 days 06/07/2023 Comments: Make sure to take Benadryl 50 mg every 6 hours and Pepcid 20 mg twice a day in addition to the prescribed medication. Make sure to avoid penicillin or any penicillin products. Return to the emergency room if the rash recurs, difficulty swallowing, difficulty breathing or any new symptoms. DIAGNOSIS: 1:Anaphylactic reaction Normal [facility] ED Note-Physicianon 06-04-19 ED Note-Physician Basic Information Time Seen: Milocrissy AllenMichelle 06/04/2023 13:53 Chief Complaint pt came by [facility] from [facility] for major allergic reaction. pt states he became very red, swelling and felt as if he was swallowing through a straw. pt had epi IM from [facility] with no relief. History of Present Illness The patient is a 52-year-old male who presented to the emergency room via EMS for possible allergic reaction. The patient states this morning he might have gotten contact with penicillin. He states he was having oral sex with his and he thinks he got in contact with penicillin. The patient thinks that he is allergic to penicillin because every time he leaves the dentist office where they premedicate him with antibiotic he developed rash and swelling on the face. The patient states his tongue feels thick and he is itching all over. Per EMS he went to urgent care and he was given epinephrine 0.3 mg IM and deltoid. The patient took 75 mg of Benadryl oral himself. He states he feels slightly better, however he still feels itchy and his tongue is thick. The patient denies any shortness of breath. He denies any other associated symptoms. Review of Systems Additional ROS info: Except as noted in the above Review of Systems and in the History of Present Illness all other systems have been reviewed and are negative or noncontributory. Physical Exam Vitals & Measurements T: 36.6 ?C(Oral) T: 36.6 ?C(Oral) HR: 72(Monitored) RR: 18 BP: 157/87 SpO2: 95% HT: 182 cm WT: 118 kg BMI: 35.62 General: alert, moderate distress Skin: warm, dry, erythema with macular papular rash throughout the body Head: no trauma, normocephalic Neck: Trachea midline, no tenderness, supple Eye: normal conjunctiva, sclera clear, PERRL, EOMI, vision unchanged, mild periorbital swelling ENMT: Oral mucosa moist, no pharyngeal erythema or exudate, no swelling of the tongue Cardiovascular: regular rate and rhythm Respiratory: Lungs CTA, respirations non labored, breath sounds equal Gastrointestinal: soft, non distended, no tenderness, no guarding Extremities: no deformity, no trauma Neurological: Alert and oriented, speech normal, no focal neuro deficits Psychiatric: cooperative, affect appropriate for age, Medical Decision Making MEDICAL DECISION MAKING Number and Complexity of Problems Differential Diagnosis: [] [facility] Data External documents reviewed: [] My EKG interpretation: [] My CT interpretation: [] My X-ray interpretation: [] My Ultrasound interpretation: [] Decision rules/scores evaluated: [] Discussed with: [] Treatment and Disposition ED Course: The patient presented with thickening of his tongue rash. His symptoms are due to anaphylactic reaction possible due to penicillin as the patient states that he has gotten contact with penicillin today. He has taken 75 mg of Benadryl by mouth and he was given epinephrine 0.3 mg IM at the urgent care. The patient continues to have itching and he is completely erythematous with a macular papular rash. The epinephrine was repeated again 0.3 mg IM in the thigh. He was given 50 mg of Benadryl, Solu-Medrol and Pepcid. After patient been medicated his symptoms improved. The patient got back to his normal state. The periorbital swelling was improved. His thick sensation of the tongue resolved. The patient was observed in the emergency room for over 5 hours and he did well. Will discharge patient home with prescription for EpiPen and prednisone for the next few days. The patient was instructed to take Benadryl epio-uhi-fxnqfta and Pepcid as well. He will follow-up with his primary care. He is instructed to return to the emergency room if his symptoms recur or any new symptoms. Shared decision making: [] Code status: [] Critical Care Time: 40 minutes, critical care time is separate from any procedures that are performed. The following was considered in the determination of critical care but not limited to the level medical decision-making, intensive cardiac and/or respiratory monitor, frequent vital sign monitoring, evaluation of laboratory studies, evaluation of a radiographic studies, oxygen monitoring and constant monitoring. Assessment/Plan 1. Anaphylactic reaction (T78.2XXA: Anaphylactic shock, unspecified, initial encounter) Orders: diphenhydrAMINE, 50 mg = 1 mL, Injection, IV Push, Once, Stop date 06/04/23 13:54:00 EST, Start date 06/04/23 13:54:00 EST epinephrine, 0.3 mg = 1 EA, IntraMuscular, As Directed, PRN Anaphylaxis, # 1 EA, Refills(s) 0 epinephrine, 1 mg = 1 mL, Injection, IntraMuscular, Once, Stop date 06/04/23 13:53:00 EST, Start date 06/04/23 13:53:00 EST famotidine, 20 mg = 2 mL, Soln-IV, IV Push, Once, Stop date 06/04/23 13:55:00 EST, Start date 06/04/23 13:55:00 EST methylPREDNISolone, 125 mg = 2 mL, Injection, IV Push, Once, Stop date 06/04/23 13:54:00 EST, Start date 06/04/23 13:54:00 EST predniSONE, 50 mg = 1 tab(s), Oral, Daily, X 5 d (more content not included)... Normal [facility] Comment on above: Result Comment: Elec tronically Signed By: Michelle Austin M.D.\.br\Date and Time Signed: 06/04/23 20:10 EST ED Patient Education Noteon 06-04-2023 ED Patient Education Note Immunology Anaphylactic Reaction, Adult An anaphylactic reaction (anaphylaxis) is a sudden, severe allergic reaction by the body's disease-fighting system (immune system). Anaphylaxis can be life-threatening. This condition must be treated right away. Sometimes a person may need to be treated in the hospital. What are the causes? This condition is caused by exposure to a substance that you are allergic to (allergen). In response to this exposure, the body releases proteins (antibodies) and other compounds, such as histamine, into the bloodstream. This causes swelling in certain tissues and loss of blood pressure to important areas, such as the heart and lungs. Common allergens that can cause anaphylaxis include: ? Foods, especially peanuts, wheat, shellfish, milk, and eggs. ? Medicines. ? Insect bites or stings. ? Blood or parts of blood received for treatment (transfusions). ? Chemicals, such as dyes, latex, and contrast material that is used for medical tests. What increases the risk? This condition is more likely to occur in people who: ? Have allergies. ? Have had anaphylaxis before. ? Have a family history of anaphylaxis. ? Have certain medical conditions, including asthma and eczema. What are the signs or symptoms? Symptoms of anaphylaxis may include: ? Feeling end finder forming department the face (flushed). This may include redness. ? Itchy, red, swollen areas of skin (hives). ? Swelling of the eyes, lips, face, mouth, tongue, or throat. ? Difficulty breathing, speaking, or swallowing. ? Dizziness, light-headedness, or fainting. ? Pain or cramping in the abdomen. ? Vomiting or diarrhea. How is this diagnosed? This condition is diagnosed based on: ? Your symptoms. ? A physical exam. ? Blood tests. ? Recent history of exposure to allergens. How is this treated? If you think you are having an anaphylactic reaction, you should do the following right away: ? Give yourself an epinephrine injection using what is commonly called an auto-injector pen (pre-filled automatic epinephrine injection device). Your health care provider will teach you how to use an auto-injector pen. ? Call for emergency help. If you use a pen, you must still get emergency medical treatment in the hospital. Treatment in the hospital may include: ? Medicines to help: ? Tighten your blood vessels (epinephrine). ? Relieve itching and hives (antihistamines). ? Reduce swelling (corticosteroids). ? Oxygen therapy to help you breathe. ? IV fluids to keep you hydrated. Follow these instructions at home: Safety ? Always keep an auto-injector pen near you. This can be lifesaving if you have a severe anaphylactic reaction. Use your auto-injector pen as told by your health care provider. ? Do not drive after an anaphylactic reaction until your health care provider approves. ? Make sure that you, the members of your household, and your employer know: ? What you are allergic to, so it can be avoided. ? How to use an auto-injector pen to give you an epinephrine injection. ? Replace your epinephrine immediately after you use your auto-injector pen. This is important if you have another reaction. If possible, carry two epinephrine auto-injector pens. ? If told by your health care provider, wear a medical alert bracelet or necklace that states your allergy. ? Learn the signs of anaphylaxis so that you can recognize and treat it right away. ? Work with your health care providers to make an anaphylaxis plan. Preparation is important. General instructions ? Tell all your health care providers that you have an allergy. ? If you have hives or rash: ? Use an pxoy-rpg-hyveamt antihistamine as told by your health care provider. ? Apply cold, wet cloths (cold compresses) to your skin or take baths or showers in cool water. Avoid hot water. ? Take wpns-sgt-bestuey and prescription medicines only as told by your health care provider. ? Keep all follow-up visits as told by your health care provider. This is important. How is this prevented? ? Avoid allergens that have caused an anaphylactic reaction in the past. ? When you are at a restaurant, tell your enlisted aircrew/aerial observer/gunner that you have an allergy. If you are not sure whether a menu item contains an ingredient that you are allergic to, ask your enlisted aircrew/aerial observer/gunner. Where to find more information ? [place] [employer]: aaaai.org ? [place] [employer]: healthychildren.org Get help right away if: ? You develop symptoms of an allergic reaction. You may notice them soon after you are exposed to a substance. ? You used epinephrine. You need more medical care even if the medicine seems to be working. This is important because anaphylaxis may happen again within 72 hours (rebound anaphylaxis). You also may need more doses of epinephrine. These symptoms may represent a serious problem that is an emergency. Do not wait to see if the symptoms will go meena (more content not included)... Normal [facility] ED Patient Summaryon 024 ED Patient Summary (Inserted Image. Dulce ble to display) [place] [id number] Patient Discharge Instructions Person Information Name: KALINA SHEPPARD Age: 52 Years Arrival Date: 06/04/2023 13:48:04 Discharge Diagnosis: 1:Anaphylactic reaction Primary Care Physician: Ariadna Bernal MD Provider Information Primary Provider: Michelle Austin M.D. Advanced Intelligence Engineer:None The exam and treatment you received in the Emergency Department were for an urgent problem and are not intended as complete care. It is important that you follow up with a doctor, nurse practitioner, or physician?s custody assistant for ongoing care. If your symptoms become worse or you do not improve as expected and you are unable to reach your usual health care provider, you should return to the Emergency Department. We are available 24 hours a day. KALINA SHEPPARD has been given the following list of patient education materials, prescriptions and follow-up instructions: Follow-up Instructions: With: Address: When: Ariadna Bernal [address] [place] [address], [address] [place] [phone] Business (1) In 3 days 06/07/2023 Comments: Make sure to take Benadryl 50 mg every 6 hours and Pepcid 20 mg twice a day in addition to the prescribed medication. Make sure to avoid penicillin or any penicillin products. Return to the emergency room if the rash recurs, difficulty swallowing, difficulty breathing or any new symptoms. In the event that this physician does not participate in your insurance network, please consult with your insurance company to find a nearby participating provider. Patient Education Materials: Anaphylactic Reaction, Adult A MESSAGE TO ALL PATIENTS REGARDING OPIOIDS PRESCRIPTION OPIOIDS: WHAT YOU NEED TO KNOW Prescription opioids can be used to help relieve kwgcjxws-wk-bvqmbr pain and are often prescribed following a surgery or injury, or for certain health conditions. These medications can be an important part of the treatment but also come with serious risks. It is important to work with your healthcare provider to make sure you are getting the safest, most effective care. WHAT ARE THE RISKS AND SIDE EFFECTS OF OPIOID USE? Prescription opioids carry serious risks of addiction and overdose, especially with prolonged use. An opioid overdose, often marked by slowed breathing, can cause sudden . The use of prescription opioids can have a number of side effects as well, even when taken as directed: ? Tolerance?meaning you might need to take more of the medication for the same pain relief ? Physical dependence?meaning you have symptoms of withdrawal when a medication is stopped ? Increased sensitivity to pain ? Constipation ? Nausea, vomiting, and dry mouth ? Sleepiness and dizziness ? Confusion ? Depression ? Low levels of testosterone that can result in lower sex drive, energy, and strength ? Itching and sweating RISKS ARE GREATER WITH: ? History of drug misuse, substance use disorder, or overdose ? Mental health conditions (such as depression or anxiety) ? Sleep apnea ? Older age (65 years and older) ? Avoid alcohol while taking prescription opioids. Also, unless specifically advised by your health care provider, medications to avoid include: ? Benzodiazepines (such as Xanax or Valium) ? Muscle relaxants (such as Soma or Flexeril) ? Hypnotics (such as Ambien or Lunesta) ? Other prescription opioids KNOW YOUR OPTIONS Talk to your health care provider about ways to manage your pain that don?t involve prescription opioids. Some of these options may actually work better and have fewer risks and side effects. Options may include: ? Pain relievers such as acetaminophen, ibuprofen, and naproxen ? Some medication that are also used for depression or seizures ? Physical therapy and exercise ? Cognitive behavioral therapy, a psychological, goal-directed approach, in which patients learn how to modify physical, behavioral, and emotional triggers of pain and stress. IF YOU ARE PRESCRIBED OPIOIDS FOR PAIN: ? Never take opioids in greater amounts or more often than prescribed. ? Follow up with your primary health care provider. o Work together to create a plan on how to manage your pain. o Talk about ways to help manage your pain that don?t involve prescription opioids. o Talk about any and all concerns and side effects. ? Help prevent misuse and abuse o Never sell or share prescription opioids. o Never use another person?s prescription opioids. ? Store prescription opioids in a secure place and out of reach of others (this may include visitors, children, friends, and family). ? Safely dispose of unused prescription opioids: Find your community drug take-back program or your pharmacy mail-back program, or flush them down the toilet, following guidance from the Food and Drug Administration (ww (more content not included)... Normal [facility] Pre-Arrival Noteon Pre-Arrival Note Pre-Arrival Summary Name: , [facility] Current Date: 06/04/2023 13:58:52 EST Gender: Male Date of : Age: 52 Pre-Arrival Type: EMS ETA: 06/04/2023 13:45:00 EST Primary Care Physician: Presenting Problem: allergic reaction Pre-Arrival User: Laura Snowden Referring Source: Location: Completion Date/Time: 06/04/2023 13:40:00 [facility] Emergency Department Pre-Hospital Report Form ____ Vital Signs: Pre-Hospital Report: Treatment in Route: Response to Treatment: Misc. Issues: Normal [facility] OCC BLD IMMUNO SCREENon 04-11 OCCULT BLOOD Negative Normal NEGATIVE [facility] Comment on above: Performed By: #### O BSCRN #### [facility] [address] [place] [address] Dr. Lucia Ellis INSULINon 04-19-2022 Insulin 14.0 uIU/mL Normal 2.6-24.9 [facility] Comment on above: Performed By: #### I NSULIN #### [facility] [address] [place] [address] Dr. Lucia Ellis CBC AUTO DIFFon 04-17-2022 BASO # 0.1 103/ul Normal 0.0-0.1 [facility] Comment on above: Performed By: #### C BC #### [facility] [address] [place] [address] Dr. Lucia Ellis Basophils/100 WBC (Bld) 0.9 % Normal 0.2-2.0 [facility] Comment on above: Performed By: #### C BC #### [facility] [address] [place] [address] Dr. Lucia Ellis EO # 0.2 103/ul Normal 0.0-0.7 [facility] Comment on above: Performed By: #### C BC #### [facility] [address] [place] [address] Dr. Lucia Ellis Eosinophils/100 WBC (Bld) 2.3 % Normal 0.9-7.0 [facility] Comment on above: Performed By: #### C BC #### [facility] [address] [place] [address] Dr. Lucia lElis Erythrocyte distribution width (RBC) [Ratio] 12.2 % Normal 11.0-15.0 [facility] Comment on above: Performed By: #### C BC #### [facility] [address] [place] [address] Dr. Lucia Ellis Hematocrit (Bld) [Volume fraction] 41.3 % Critically low 42.0-54.0 [facility] Comment on above: Performed By: #### C BC #### [facility] [address] [place] [address] Dr. Lucia Ellis Hemoglobin (Bld) [Mass/Vol] 15.0 g/dL Normal 14.0-18.0 [facility] Comment on above: Performed By: #### C BC #### [facility] [address] [place] [address] Dr. Lucia Ellis IG # 0.04 10e3/ul Critically high 0.00-0.03 [facility] Comment on above: Performed By: #### C BC #### [facility] [address] [place] [address] Dr. Lucia Ellis IG % 0.6 % Critically high 0.0-0.5 [facility] Comment on above: Performed By: #### C BC #### [facility] [address] [place] [address] Dr. Lucia Ellis LYMPH # 2.8 103/ul Normal 1.2-3.8 [facility] Comment on above: Performed By: #### C BC #### [facility] [address] [place] [address] Dr. Lucia Ellis Lymphocytes/100 WBC (Bld) 40.1 % Normal 20.5-60.0 [facility] Comment on above: Performed By: #### C BC #### [facility] [address] [place] [address] Dr. Lucia Ellis MANUAL DIFF REQ NO Normal [facility] Comment on above: Performed By: #### C BC #### [facility] [address] [place] [address] Dr. Lucia Ellis MCH (RBC) [Entitic mass] 29.1 pg Normal 25.9-34.0 [facility] Comment on above: Performed By: #### C BC #### [facility] [address] [place] [address] Dr. Lucia Ellis MCHC (RBC) [Mass/Vol] 36.3 g/dL Critically high 29.9-35.2 [facility] Comment on above: Performed By: #### C BC #### [facility] [address] [place] [address] Dr. Lucia Ellis MCV (RBC) [Entitic vol] 80.2 fL Normal 80.0-94.0 [facility] Comment on above: Performed By: #### C BC #### [facility] [address] [place] [address] Dr. Lucia Ellis MONO # 0.5 103/ul Normal 0.3-0.8 [facility] Comment on above: Performed By: #### C BC #### [facility] [address] [place] [address] Dr. Lucia Ellis Monocytes/100 WBC (Bld) 7.1 % Normal 1.7-12.0 [facility] Comment on above: Performed By: #### C BC #### [facility] [address] [place] [address] Dr. Lucia Ellis NEUT # 3.4 103/ul Normal 1.4-6.5 [facility] Comment on above: Performed By: #### C BC #### [facility] [address] [place] [address] Dr. Lucia Ellis Neutrophils/100 WBC (Bld) 49.0 % Normal 43.0-75.0 [facility] Comment on above: Performed By: #### C BC #### [facility] [address] [place] [address] Dr. Lucia Ellis Platelet mean volume (Bld) [Entitic vol] 8.8 fL Critically low 9.5-13.5 [facility] Comment on above: Performed By: #### C BC #### [facility] [address] [place] [address] Dr. Lucia Ellis PLT 260 103/ul Normal 150-450 [facility] Comment on above: Performed By: #### C BC #### [facility] [address] [place] [address] Dr. Lucia Ellis RBC 5.15 106/ul Normal 4.70-6.10 [facility] Comment on above: Performed By: #### C BC #### [facility] [address] [place] [address] Dr. Lucia Ellis WBC 6.9 103/ul Normal 4.0-11.0 [facility] Comment on above: Performed By: #### C BC #### [facility] [address] [place] [address] Dr. Lucia Ellis GLYCOHEMOGLOBIN A1Con 2022 ADA RECOMMENDATION SEE BELOW Normal [facility] Comment on above: Result Comment: ADA RECOMMENDED LIMIT 4.0 - 6.0 ADA THERAPEUTIC TARGET < 7.0 ACTION SUGGESTED > 7.0 Performed By: #### A 1C #### [facility] [address] [place] [address] Dr. Lucia Ellis Glucose [Mass/Vol] 108 mg/dL Normal [facility] Comment on above: Performed By: #### A 1C #### [facility] [address] [place] [address] Dr. Lucia Ellis HbA1c (Bld) [Mass fraction] 5.4 % Normal 4.5-6.2 [facility] Comment on above: Performed By: #### A 1C #### [facility] [address] [place] [address] Dr. Lucia Ellis LIPID PROFILEon 04-17-2022 CHOL-HDL RATIO NORM SEE BELOW Normal [facility] Comment on above: Result Comment: 3.3 - 4.4 LOW RISK 4.4 - 7.1 AVERAGE RISK 7.1 - 11.0 MODERATE RISK >11.0 HIGH RISK Performed By: #### L IPID, URIC, CMP #### [facility] [address] [place] [address] Dr. Lucia Ellis Cholesterol [Mass/Vol] 216 mg/dL Critically high <=200 [facility] Comment on above: Performed By: #### L IPID, URIC, CMP #### [facility] [address] [place] [address] Dr. Lucia Ellis Cholesterol in HDL [Mass/Vol] 49 mg/dL Normal 40-60 [facility] Comment on above: Performed By: #### L IPID, URIC, CMP #### [facility] [address] [address] [address] Luica Ellis Cholesterol in LDL [Mass/Vol] 135.0 mg/dL Normal [facility] Comment on above: Performed By: #### L IPID, URIC, CMP #### [facility] [address] [address] [address] Lucia Ellis Cholesterol.total/C holesterol in HDL [Mass ratio] 4.4 {ratio} Normal [facility] Comment on above: Performed By: #### L IPID, URIC, CMP #### [facility] [address] [address] [address] Lucia Ellis HDL NORMAL > or = 60 mg/dl - LO W CARDIOVASCULAR RISK <40 mg/dl - HIGH CARDIOVASCULAR RISK Normal [facility] Comment on above: Performed By: #### L IPID, URIC, CMP #### [facility] [address] [address] [address] Lucia Ellis LDL CALC NORMAL SEE BELOW Normal [facility] Comment on above: Result Comment: <100 mg/dl OPTIMAL 100 - 129 mg/dl NEAR OR ABOVE OPTIMAL 130 - 159 mg/dl BORDERLINE HIGH 160 - 189 mg/dl HIGH >190 mg/dl VERY HIGH Performed By: #### L IPID, URIC, CMP #### [facility] [address] [address] [address] Lucia Ellis Triglyceride [Mass/Vol] 160 mg/dL Critically high <=150 [facility] Comment on above: Performed By: #### L IPID, URIC, CMP #### [facility] [address] [address] [address] Lucia Ellis VLDL CALC 32.0 mg/dL Normal [facility] Comment on above: Performed By: #### L IPID, URIC, CMP #### [facility] [address] [address] [address] Lucia Ellis PROF 14(COMP METB)on 023 Albumin [Mass/Vol] 3.8 g/dL Normal 3.4-5.0 [facility] Comment on above: Performed By: #### L IPID, URIC, CMP #### [facility] [address] [place] [address] Dr. Lucia Ellis Albumin/Globulin [Mass ratio] 1.2 {ratio} Normal [facility] Comment on above: Performed By: #### L IPID, URIC, CMP #### [facility] [address] [place] [address] Dr. Lucia Ellis ALP [Catalytic activity/Vol] 54 U/L Normal 46-116 [facility] Comment on above: Performed By: #### L IPID, URIC, CMP #### [facility] [address] [place] [address] Dr. Lucia Ellis ALT [Catalytic activity/Vol] 41 U/L Normal 16-63 [facility] Comment on above: Performed By: #### L IPID, URIC, CMP #### [facility] [address] [place] [address] Dr. Lucia Ellis Anion gap [Moles/Vol] 13.4 mmol/L Normal [facility] Comment on above: Performed By: #### L IPID, URIC, CMP #### [facility] [address] [place] [address] Dr. Lucia Ellis AST [Catalytic activity/Vol] 23 U/L Normal 15-37 [facility] Comment on above: Performed By: #### L IPID, URIC, CMP #### [facility] [address] [place] [address] Dr. Lucia Ellis Bilirubin [Mass/Vol] 0.5 mg/dL Normal 0.2-1.0 [facility] Comment on above: Performed By: #### L IPID, URIC, CMP #### [facility] [address] [place] [address] Dr. Lucia Ellis Calcium [Mass/Vol] 8.9 mg/dL Normal 8.5-10.1 [facility] Comment on above: Performed By: #### L IPID, URIC, CMP #### [facility] [address] [place] [address] Dr. Lucia Ellis Chloride [Moles/Vol] 104 mmol/L Normal 98-107 [facility] Comment on above: Performed By: #### L IPID, URIC, CMP #### [facility] [address] [address] [address] Lucia Ellis CO2 [Moles/Vol] 27.9 mmol/L Normal 21.0-32.0 [facility] Comment on above: Performed By: #### L IPID, URIC, CMP #### [facility] [address] [place] [address] Dr. Lucia Ellis Creatinine [Mass/Vol] 0.69 mg/dL Critically low 0.70-1.30 [facility] Comment on above: Performed By: #### L IPID, URIC, CMP #### [facility] [address] [place] [address] Dr. Lucia Ellis EGFR-AF CUBAN >60 Normal >=60 [facility] Comment on above: Performed By: #### L IPID, URIC, CMP #### [facility] [address] [place] [address] Dr. Lucia Ellis EGFR-NON AF CUBAN >60 Normal >=60 [facility] Comment on above: Performed By: #### L IPID, URIC, CMP #### [facility] [address] [place] [address] Dr. Lucia Ellis Globulin (S) [Mass/Vol] 3.2 g/dL Normal [facility] Comment on above: Performed By: #### L IPID, URIC, CMP #### [facility] [address] [place] [address] Dr. Lucia Ellis Glucose [Mass/Vol] 99 mg/dL Normal 74-106 [facility] Comment on above: Performed By: #### L IPID, URIC, CMP #### [facility] [address] [place] [address] Dr. Lucia Ellis Potassium [Moles/Vol] 4.3 mmol/L Normal 3.5-5.1 [facility] Comment on above: Performed By: #### L IPID, URIC, CMP #### [facility] [address] [address] [address] Lucia Ellis Protein [Mass/Vol] 7.0 g/dL Normal 6.4-8.2 [facility] Comment on above: Performed By: #### L IPID, URIC, CMP #### [facility] [address] [address] [address] Lucia Ellis Sodium [Moles/Vol] 141 mmol/L Normal 136-145 [facility] Comment on above: Performed By: #### L IPID, URIC, CMP #### [facility] [address] [address] [address] Lucia Ellis Urea nitrogen [Mass/Vol] 16.0 mg/dL Normal 7.0-18.0 [facility] Comment on above: Performed By: #### L IPID, URIC, CMP #### [facility] [address] [place] [address] Dr. Lucia Ellis Urea nitrogen/Creatinine [Mass ratio] 23.2 mg/mg Normal [facility] Comment on above: Performed By: #### L IPID, URIC, CMP #### [facility] [address] [place] [address] Dr. Lucia Ellis URIC ACID SERUMon 04-17-2022 Urate [Mass/Vol] 6.1 mg/dL Normal 3.5-7.2 [facility] Comment on above: Performed By: #### L IPID, URIC, CMP #### [facility] [address] [place] [address] Dr. Lucia QUINONEZOVgordon 06-08-2017 CNOV Office Visit (SPHTB) MELISSA SHEPPARD ([id number]) 1970 MDate Time Provider Department06/08/17 9:30 AM ZAHEER AWAN SPHTB During your visit today, we recorded the following information about you:LesleeKrista Barroso CNP 06/08/2017 10:32 AM SignedChief Complaint: follow-up of 11 wks s/p Right knee arthroscopy,chondroplasty , and removal of multiple loose bodies.?HPI: doing [...] future will come back in follow-upAraceli Barroso CNPAnthony Miniaci, MD 06/08/2017 10:32 AM SignedI have personally seen, examined the pt. And agree with the documentation of myclinical staff. I have personally developed the pt's plan of care.Sofiya Quinones Provider: ZAHEER AWAN [[id number]]Allergies As of Date: 06/08/2017(No Known Allergies)Date Reviewed: 06/08/2017Reviewed by: Araceli [facility]New [facility]) Chio - Fully AssessedReason for Visit: [...] Date 06/08/2017 Noted Resolved TEAR MENISCUS NEC-CURRENT [BHO2389] INVALID FOR* MITRAL VALVE DISORDER [I05.9] INVALID FOR* ANXIETY STATE NEC [F41.1] INVALID FOR* INT DERANGEMENT KNEE NOS [M23.90] INVALID FOR* Joint loose bodies [M24.00] INVALID FOR* More... OA (osteoarthritis) of knee [M17.10] INVALID FOR* More... Status:Closed by ZAHEER AWAN MD on 06/08/17 [facility] PROGRESSon 06-08-2017 PROGRESS HNO ID: [id number] thor: Zaheer AwanService: (none)Author Type: PhysicianType: Progress NotesFiled: 06/08/2017 10:32 AMNote Text:I have personally seen, examined the pt. And agree with the documentationof my clinical staff. I have personally developed the pt's plan ofcare.Zaheer Awan MD [facility] PROGRESS HNO ID: [id number] thor: Araceli JohnsonDavey) Sungervice: (none)Author Type: Nurse PractitionerType: Progress NotesFiled: 06/08/2017 10:32 AMNote Text:Chief Complaint: follow-up of 11 wks s/p Right knee arthroscopy,chondroplasty , and removal of multiple loose bodies.?HPI: doing [...] come back in follow-upAraceli Barroso CNP [facility] CNCOon 05-02-2017 Thyroid stimulating hormone (TSH) Letter [facility] HospitalZaheer Awan MD[address] [facility], [place] [address]Emgbqm: [phone] Xtang. [phone] 2017ATTN: Emiliano # [id number] 2330Kalina Shipmanz[address] [address]Zr Whom It May Concern,This letter is to certify that Kalina Sheppard has been under my carefollowing knee surgery on March 22, 2018. Kalina may return to work onMay 05, 2017 with the following restrictions for the next 4 weeks:Light duty work, which would include intermittent sitting to rest knee astoleratedNo climbing, no laddersNo crawlingThank you for your consideration with this matter.Sincerely,Zaheer Awan MD Normal [facility] Discharge Summaryon 04-29-19 18 HIM IP Note OR Merchandising Professor Normal [facility] Progress Noteon 04-29-2017 HIM IP Note OR Merchandising Professor [facility] Progress Noteon 04-26-2017 HIM IP Note OR Merchandising Professor [facility] Progress Noteon 04-22-2017 HIM IP Note OR Merchandising Professor [facility] Progress Noteon 04-19-2017 HIM IP Note OR Merchandising Professor [facility] Progress Noteon 04-15-2017 HIM IP Note OR Merchandising Professor [facility] PROGRESSon 04-14-2017 PROGRESS HNO ID: [id number] thor: Araceli Velasco (Davey) Sungervice: (none)Author Type: Nurse PractitionerType: Progress NotesFiled: 04/14/2017 [...] his feet all day, climbing ladders, crawling, [id number] formThat was sent to our office filled [...] while sitting on chair, flexes to it [id number] degresSwelling/Effusion: traceIncision: Well-healed, without evidence of erythema, [...] with no x-rays with Dr Lorne Barroso, NEWSPAPER DISTRIBUTOR SUPERVISOR Normal [facility] 04-13-2017 [facility] ([facility]) ZHOUMELISSA Kumar ([id number]) 1970 MDate Time Provider Department04/13/17 10:00 AM ARACELI BARROSO (DAVEY) [facility] During your visit today, we recorded the [...] while sitting on chair, flexes to it [id number] degresSwelling/Effusion: traceIncision: Well-healed, without evidence of erythema, [...] with no x-rays with Dr Lorne Barroso, [facility]Referring Provider: ZAHEER AWAN [[id number]]Allergies As of Date: 04/13/2017(No Known Allergies)Date Reviewed: 03/22/2017Reviewed by: Araceli Velasco (Toy Assembler) Chio - Fully AssessedPrimary Visit Diagnosis:Post-operative state [...] Date 04/13/2017 Noted Resolved TEAR MENISCUS NEC-CURRENT [[id number]] INVALID FOR* MITRAL VALVE DISORDER [I05.9] INVALID [...] therapy completedFollow-up and Disposition History RecordedEncounter Number: [id number] Status:Closed by ARACELI BARROSO CNP on 04/14/17 [facility] Progress Noteon 04-12-2017 HIM IP Note OR Merchandising Professor [facility] Progress Noteon 04-08-2017 HIM IP Note OR Merchandising Professor Normal [facility] Progress Noteon 04-06-2017 HIM IP Note OR Merchandising Professor [facility] ANES Jey 03-22-2017 ANES POST HNO ID: [id number] thor: Zhang Ramesh IIIService: AnesthesiologyAuthor Type: AnesthesiologistType: Anesthesia PostOpFiled: 03/22/2017 4:58 PMNote Text:POST ANESTHESIA EVALUATION NOTESERVICE DATE: 03/22/2017SERVICE TIME: 0935DOB: 1970Vitals: 03/22/1708Temp: 36.5 ?C (97.7 ?F) 36.5 [...] NoneOther Remarks:SIGNATURE: Zhang Ramesh MD PATIENT NAME: Kalina SheppardDATE: March 22, 2017 : 9:35 AM PAGER/CONTACT #: [phone] [facility] ANES PREOPon 03-22-2017 ANES PREOP HNO ID: [id number] thor: Zhang Ramesh IIIService: AnesthesiologyAuthor Type: AnesthesiologistType: Anesthesia PreOpFiled: 03/22/2017 7:24 AMNote Text: ANESTHESIOLOGY DAY OF SURGERY NOTESERVICE DATE: 03/22/2017SERVICE TIME: 716DOB: 1970Procedure(s) (LRB):ARTHROSCOPY KNEE ARTICULAR CARTILAGE SHAVING OR DEBRIDEMENT (Right)ARTHROSCOPIC REMOVAL LOOSE BODY KNEE (Right)CHONDROPLASTY KNEE (Right)Surgeon(s):Zaheer Vasquez body mass index is 36.07 kg/(m2) as calculated from thefollowing: Height as of this encounter: 182.9 cm (6' 0.01 ). Weight as of this encounter: 120.7 kg (266 lb).Most recent hematocrit and potassium results:Hematocrit 44.2 05/17/2005Potassium 4.4 05/17/2005NES DOS/PREOP NOTE:Vitals: [id number]: 133/91Pulse: 71Resp: 18Temp: 36.5 ?C (97.7 ?F)TempSrc: [...] Medications:lactated ringers infusion 5-30 mL/hr INTRAVENOUS CONTINUOUS Araceli Velasco (Davey)Chio Last Rate: 30 mL/hr at 03/22/17 0625 30 mL/hr at 03/22/17 0625ceFAZolin 3 g in sterile water 30 mL (ANCEF) 3 g INTRAVENOUS Pre-Op Scotty Velasco (Toy Assembler) Reinhardtscopolamine 1 mg over 3 days 1 Patch (TRANSDERM-SCOP) 1 Patch TRANSDERMALq 72 HR Zhang Peña[START ON 03/25/2017] scopolamine - REMOVE PATCH OTHER q 72 HR Zhang Peñascopolamine - VERIFY patch OTHER q 8 H Zhang Sandovalergies: ALLERGIESNo Known AllergiesDOS EXAM: Adequate NPO status: [...] contains updated information obtained within 48 hours ofSurgery/Procedure.SIGNA TURRigoberto: Zhang Ramesh MD PATIENT NAME: Kalina SheppardDATE: March 22, 2017 : 7:17 AM CSN: [id number] [facility] BRIEF OP NOTon 03-22-2017 BRIEF OP NOT HNO ID: [id number] thor: Zaheer AwanService: Orthopaedic SurgeryAuthor Type: PhysicianType: Brief Op NoteFiled: 03/22/2017 8:32 AMNote Text:BRIEF OP NOTELOG ID: [id number]/Procedure Date: 03/22/2017Incision/Proced ure Start Time: 8:04 AMIncision Close/Procedure End Time: 8:21 AMSurgeon(s)/Proceduralis t(s) and Category Specialist(s):Surgeon(s) and Role: * Zaheer Awan - Primary * Araceli Barroso CNP first assistantProcedure(s): right knee arthroscopy with debridement and removal of loosebodiesAnesthesia: GeneralFindings: grade 4 cartilage loss lateral compartment, grade 3-4 lossmedial compartment, some cartilage loss patellofemoral compartment,multiple loose bodiesEstimated Blood Loss: 0 mlSpecimens: NoneComplications: NonePre-Op/Pre-Procedure Diagnosis: right knee arthritis, with loose bodiesPost-Op/Post-Proced ure Diagnosis: Joint loose bodies [M24.00]OA(osteoarthritis ) of knee [M17.10]SIGNATURE: Zaheer Awan MD PATIENT NAME: Kalina SevillaTE: March 22, 2017 : 8:29 AM PAGER/CONTACT #: [facility] NURSING PROGon 03-22-2017 NURSING PROG HNO ID: [id number] thor: Clarissa Moreland (Rn) AIXA Renteriaervice: (none)Author Type: Registered NurseType: Nursing Progress NoteFiled: 03/23/2017 2:58 PMNote Text:Patient states no pain. Had moderate amount of bloody drainage yesterdayand changed dressing, no further drainage. No questions or concerns. [facility] NURSING PROG HNO ID: [id number] thor: Gaby Coleman Rnice: NursingAuthor Type: Registered NurseType: Nursing Progress NoteFiled: 03/22/2017 6:51 AMNote Text:PRE OP LEARNING ASSESSMENTPROCEDURE/SURGE RY: SURGERY: Right knee arthroscopyREADINESS TO LEARNCOGNITIVE ABILITY: Alert and orientedMOTIVATION TO LEARN: EagerFAMILY SUPPORT: High - Very involved in pt carePATIENT LEARNS BEST BY: Verbal InstructionFACTORS AFFECTING LEARNING: NonePHYSICAL LIMITATIONS AFFECTING LEARNING: NoneElectronically Signed By: Zena Aguilera RN In Department: [facility] OPERATIVE NOon 03-22-2017 OPERATIVE NO HNO ID: [id number] thor: Zaheer AwanService: Orthopaedic SurgeryAuthor Type: PhysicianType: Operative ReportFiled: 03/24/2017 7:22 AMNote Text:[facility]ON CAMPUSOperative ReportORIGINATOR: JAZMINE MorenoKALINA WMRN: [id number] ACCTNUM: [id number]: OROR LOCATION: [place] [address]ATTENDING PHYSICIAN: Zaheer Awan, MDDATE OF PROCEDURE: 03/22/2017SURGEON: Zaheer Awan MDASSISTANT: Araceli Barroso, certified nurse practitioner. [...] 22: Patient's BMI greater than 35.PREOPERATIVE ASSESSMENT: Kalina is a 46-year-old who has been havingongoing [...] some of [facility] symptomatology. [facility]. The patient was then [...] surface and in the trochlear ridge. These weredebrided,chondroplast y performed. A significant amount of synovitis, partialsynovectomy [...] the tibial plateau in the intercondylar eminence, vhpl-pz-zflc grade 4changes in the lateral compartment. There [...] LOSS: Minimal.COMPLICATIONS: None.IMPLANTS USED: None.SPECIMENS: None.Surgery/Procedure Date: 03/22/2017Incision/Proced ure Start Time: 8:04 AMIncision Close/Procedure End Time: 8:21 AMSurgeon(s)/Proceduralis t(s) and Category Specialist(s):Surgeon(s) and Role: * Zaheer Awan - PrimaryRegistered Nurse [employer] Delivery Driver: Araceli Taylor was present for and performed or supervised allCritical portions of the procedureMargareth Moreno MDAM:MedQD: 03/22/2017 08:53:02T: 03/22/2017 10:00:26Job #: [id number]: [facility] OPERATIVE NO HNO ID: [id number] thor: Zaheer AwanService: Orthopaedic SurgeryAuthor Type: PhysicianType: Operative ReportFiled: 04/18/2017 10:02 AMNote Text:[facility]BERT[facility] CAMPUSOperative ReportORIGINATOR: JAZMINE MorenoKALINA WMRN: [id number] ACCTNUM: [id number]: OROR LOCATION: [place] [address]ATTENDING PHYSICIAN: Zaheer Awan, MDDATE OF PROCEDURE: 03/22/2017SURGEON: ANDREE MorenoURGEON: Zaheer Awan MDASSISTANT: Araceli Barroso, certified nurse practitioner. [...] than 35 and jointaccess more difficult.PREOPERATIVE ASSESSMENT: Kalina is a 46-year-old who has been havingongoing [...] some of his symptomatology. He was admitted [facility] [place], met,appropriate right extremity marked. The patient was [...] surface and in the trochlear ridge. These weredebrided,chondroplast y performed. A significant amount of synovitis, partialsynovectomy [...] the tibial plateau in the intercondylar eminence, vlad-cv-spyh grade 4changes in the lateral compartment. There [...] LOSS: Minimal.COMPLICATIONS: None.IMPLANTS USED: None.SPECIMENS: None.Surgery/Procedure Date: 03/22/2017Incision/Proced ure Start Time: 8:04 AMIncision Close/Procedure End Time: 8:21 AMSurgeon(s)/Proceduralis t(s) and Category Specialist(s):Surgeon(s) and Role: * Zaheer Awan - PrimaryRegistered Nurse [employer] Delivery Driver: Araceli Velasco (Davey) Brandon was present for and performed or supervised allCritical portions of the procedureZaheer Awan MDAM:MedQD: 03/22/2017 08:53:02T: 03/22/2017 10:00:26Revised: [id number] #: [id number]: [facility] PT EDon 03-22-2017 PT ED HNO ID: [id number] thor: Zena JohnsonRn) Gaby Aguileraice: (none)Author Type: Registered NurseType: Patient EducationFiled: 03/22/2017 9:12 AMNote Text:POST OP LEARNING RESPONSEINSTRUCTION PROVIDED TO: Patient and family memberMETHOD OF INSTRUCTION: Written instruction - handoutsVerbal instructionPATIENT / FAMILY RESPONSE: Verbalizes understanding of: INFECTIONMANAGEMENT-Signs and symptoms of an infection and importance ofcontacting the physicianMEDICAL REGIMEN-Importance of following prescribed medical regimenFOLLOW-UP PLAN: Follow-up with Primary CareSUPPLEMENTAL MATERIAL: NoneREFERRAL (RECOMMENDATION):Electron ically Signed By: Zena Aguilera RN In Department: [facility] NURSING PROGon 03-18-2017 NURSING PROG HNO ID: [id number] thor: Araceli JohnsonRn) Gaby Browneice: (none)Author Type: [...] from Dr. Bernal and is scanned in [facility]. Phoned Dr. Bernal'hannah ([phone]); spoke cristian Schaefer and requested remainder oftesting. Olive will have Dr. Bernal review and will fax on Tuesday, 03/21.Phoned patient to give instructions; message left.Pre-op Considerations:pendingCha rt Check:IN PROGRESS- Needs HANDP/ outside testing AND instructionsDuglas Gallagher 2016 1:28 PMADDENDUM: March 21, 2017 8:[address] Bernal scanned into [facility] with clearance noted at bottom. Stresstest from 03/17/2017, Echocardiogram from 03/18/2017, EKG, CBC and CMP from03/10/2017 scanned into [facility]. Chart check complete. Araceli Browne RN. PATIENT PREOPERATIVE INSTRUCTIONSMarymount ASC: [phone] --[address] [place] [address].Instructions provided via phone. Patient identified by name [...] 2 hours before scheduled arrival at facility.Pain Medications:Medications:A pproved medications to take the morning of surgery with a sip of water:nothingIf you start any new medications after today's visit, please contact thesurgery center above.Important Reminders:- Candy, mints, gum and tobacco products are NOT permitted the morning ofsurgery.- Hearing aids, dentures and glasses may be worn the morning of surgery.- NO jewelry, body piercings, makeup, nail urdu, hairpins or contactsare to be worn the day of surgery.If you develop symptoms such as a fever, cold, or flu, or have otherchanges to your health within TWO DAYS of scheduled surgery or the morningof surgery, please contact the surgery center above.Personal Belongings:- Leave ALL valuables and money at home or with family members.For Outpatient Procedures: - YOU MUST HAVE A RESPONSIBLE PROM BURN OFF OPERATOR TAKE YOU HOME. A MOLD PULLER OR CABDRIVER CANNOT BE MADE A RESPONSIBLE PROM BURN OFF OPERATOR.- We recommend that a responsible person stays [...] you as soon aspossible and regret any inconvenience.Araceli Browne RN [facility] 03-08-2017 HOSP Patient Update (SPHTB) MELISSA SHEPPARD ([id number]) 1970 MDate Time Provider Gywiscerlf04/28/17 ARACELI BARROSO (NEWSPAPER DISTRIBUTOR SUPERVISOR) SPHTB During your visit today, we recorded the following information about you:Allergies As of Date: 03/08/2017(No Known Allergies)Date Reviewed: 02/23/2017Reviewed by: Tammy Jeffers Ma - Fully AssessedOrder(s):SURGICAL REQUEST - ELECTIVE [[id number]] Order #: [id number]: 1Prescriptions as of 03/08/2017 Sig: GLUCOSAMINE COMPLEX [...] Date 03/08/2017 Noted Resolved TEAR MENISCUS NEC-CURRENT [AJK5354] INVALID FOR* MITRAL VALVE DISORDER [I05.9] INVALID FOR* ANXIETY STATE NEC [F41.1] INVALID FOR* INT DERANGEMENT KNEE NOS [M23.90] INVALID FOR* Joint loose bodies [M24.00] INVALID FOR* More... OA (osteoarthritis) of knee [M17.10] INVALID FOR* More...Disposition: Return in about 3 weeks (around 03/29/2017) for add on tueapr 13 at 10 am at [employer] with [facility].Follow-up and Disposition History RecordedEncounter Number: [id number] Status:Closed by ARACELI BARROSO NEWSPAPER DISTRIBUTOR SUPERVISOR on 03/08/17 [facility] HOSP Patient:Jewel Sheppard WMRN: Height:6' .008 (1.829 m)Weight:266 lb (120.657 kg)Outpatient Medications as of 03/22/17:GLUCOSAMINE HCL AND SULFATE (GLUCOSAMINE COMPLEX ORAL)PARoxetine (PAXIL) 40 mg tabletmetoprolol tartrate, short acting, (LOPRESSOR) 50 mg tabletaspirin 81 mg chewable tabletMultivitamin capsuleAdmission/Clinic Administered Medications as of 03/22/17:lactated ringers infusionceFAZolin 3 g in sterile water 30 mL (ANCEF)scopolamine 1 mg over 3 days 1 Patch (TRANSDERM-SCOP)scopolami ne - REMOVE PATCHscopolamine - VERIFY patchProblem List:Other tear of cartilage or meniscus of knee, current [ZHC1931]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]Other anxiety states [F41.1]Unspecified internal derangement of knee [M23.90]Joint loose bodies [M24.00]OA (osteoarthritis) of knee [M17.10]Allergies:No Known AllergiesDate Verified:03/22/17Lab ValuesNo results within the last 30 days for the following basenames: K,HCTProgress Notes (ORTHOPAEDIC AND RHEUMATOLOGIC INST):Meghan Maguire 03/07/2017 3:50 PM Yktzdy50/27/17 @ 230pmKalina's called to speak to you about PT after Kalina's surgery.Please call to discuss when you are free.[phone] Barroso CNP 03/08/2017 10:44 AM SignedReturned callNo [...] virtual visit at 3 weeks postopAraceli Barroso CNPProgrisabelle Notes (ORTHOPAEDIC AND RHEUMATOLOGIC INST):Meghan Maguire 03/01/2017 4:21 PM Vcjyve49/21/17 @ 200pmPatients left a VM for you that Jewel has some questions for you please callto discuss.Jewel- [phone] Barroso CNP 03/01/2017 6:50 PM SignedSpoke to patient and wifeSurgical arrangements madeAll questions answeredTo have local PCP to preopHistory and physical,They will call back our office with fax number to fax forms to their local PCPAraceli Barroso CNP [facility] 02-23-2017 [facility] Office Visit (SPHTB) ZHOUMELISSA ([id number]) 1970 MDate Time Provider Lxdivuvtdg83/15/17 2:00 PM ZAHEER AWAN [facility] During your visit today, we recorded the following information about you:Zaheer Awan MD 02/23/2017 1:43 PM SignedReturns in [...] with more than 50% of the total ljda-io-iyffvadt of the visit in counseling / coordination [...] TABLET Take 40 mg by mouth once mdaelyn* METOPROLOL TARTRATE 50 MG TAB* Take 50 mg by mouth once madelyn* ASPIRIN 81 MG CHEWABLE TABLET Take 81 mg by mouth once madelyn* MULTIVITAMIN CAPSULE Take 1 capsule by mouth once *Problem List As Of Date 02/23/2017 Noted Resolved TEAR MENISCUS NEC-CURRENT [MBC3154] INVALID FOR* MITRAL VALVE DISORDER [I05.9] INVALID FOR* ANXIETY STATE NEC [F41.1] INVALID FOR* INT DERANGEMENT KNEE NOS [M23.90] INVALID FOR* Status:Closed by ZAHEER AWAN MD on 02/23/17 [facility] MRI KNEE WO IVCON RTon 02-23 MRI KNEE WO IVCON RT * * *Final Report* * *DATE OF EXAM: Feb 23 2017 12:32PM [facility] 0213 - MRI KNEE WO IVCON RT [...] was performed.M: MRK_2COMPARISON: Knee radiographs 02/07/2017. MR 05/09/2005.RESULT:MENISCI: Medial Meniscus: Degenerative changes without tearLateral Meniscus: Not [...] THE LATERAL COMPARTMENT. ESSENTIALLY ABSENT THE LATERAL MENISCUS.Horse Exerciser : JOE Transcribe Date/Time: Feb 23 2017 2:08PDictated by : LAMIN STALEY MDThis examination was interpreted and the report reviewed and electronically signed by: LIN WEAVER MD on Feb 23 2017 7:32PM [id number] [facility] PROGRESSon 02-23-2017 PROGRESS HNO ID: [id number] thor: Zaheer SchaferaciService: (none)Author Type: PhysicianType: Progress NotesFiled: 02/23/2017 1:43 [...] visit, with more than 50% of the clvculfir-xl-oqgq time of the visit in counseling / coordination of care. [facility] PROGRESS HNO ID: [id number] thor: Gadiel Tyler Mri-TService: (none)Author Type: (none)Type: Progress NotesFiled: 02/23/2017 12:13 PMNote Text: Radiology Service Progress NotePATIENT NAME: Kalina AcuñasilviazMRN: [id number] OF SERVICE: February 23, 2017TIME: 12:12 PMPATIENT IDENTITY VERIFICATION COMPLETED USING TWO (2) METHODS: Patientconfirmed name verbally and Date of .PATIENT GENDER DATA: MalePATIENT RELEVANT IMPLANT DATA REVIEWED: YesRADIOLOGY DEPARTMENT: MR; Exam(s) Completed: Lower MSK: Knee, rightPERIPHERAL IV DATA: Not applicableSIGNED BY: Gadiel Tyler Mri-TNovember 2016 12:12 PM [facility] CNOVon 02-07-2017 CNOV Office Visit (SPRHAYDEEN) JEWEL SHEPPARD ([id number]) 1970 MDate Time Provider Frxdskktxt41/30/17 2:00 PM ZAHEER AAWN During your visit today, we recorded the following information about you: Weight Height 122.5 kg 1.829 Harleen Kaur MD 02/07/2017 3:50 PM SignedNew Patient appointment. Patient previously seen in 2005.History of present illness: Kalina Sheppard is a 46 year old male [...] cortisone injections or other therapies. 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 Nikolay's negative .Imaging: Plain films from [facility] are personally reviewed by me anddemonstrate severe lateral compartment degenerative changes of right knee aswell as spurring of patellofemoral joint, particularly along medial trochlea.Procedure: NoneImpression: Kalina Sheppard is a 46 year old male [...] findings and plan of care.Sofiya Ritchie Provider: ZAHEER AWAN [[id number]]Allergies As of Date: 02/07/2017(No Known Allergies)Date Reviewed: 02/07/2017Reviewed by: Nayely Ann Ma - Fully AssessedReason for Visit: Right Knee Pain [1209]Primary Visit Diagnosis:Post-traumatic osteoarthritis of right knee [M17.31]Order(s):MRI KNEE WO IVCON RT [[id number]] Order #: [id number] FUTUREPrescriptions as of 02/07/2017 Sig: PAROXETINE 40 MG TABLET Take 40 mg by mouth once madelyn* METOPROLOL TARTRATE 50 MG TAB* Take 50 mg by mouth once madelyn* ASPIRIN 81 MG CHEWABLE TABLET Take 81 mg by mouth once madelyn* MULTIVITAMIN CAPSULE Take 1 capsule by mouth once *Problem List As Of Date 02/07/2017 Noted Resolved TEAR MENISCUS NEC-CURRENT [SMF6346] INVALID FOR* MITRAL VALVE DISORDER [I05.9] INVALID [...] Discontinued by another Health Care ProviderEncounter Number: [id number] Status:Closed by ZAHEER AWAN MD on 02/07/17 [facility] PROGRESSon 02-07-2017 PROGRESS HNO ID: [id number] thor: Zaheer Patel: (none)Author Type: PhysicianType: Progress NotesFiled: 02/07/2017 3:50 PMNote Text:I discussed the management of with the fellow. I have reviewed thefellow's note and agree with the documented findings and plan of care.Cristofer Awan MD [facility] PROGRESS HNO ID: [id number] thor: Ankit ([employer]) Pilar: (none)Author Type: FellowType: Progress NotesFiled: 02/07/2017 3:50 PMNote Text:New Patient appointment. Patient previously seen in 2005.History of present illness: Kalina Sheppard is a 46 year old male [...] suffering injury and tear of meniscal transplant [id number], treated with partial lateral meniscectomy and debridement. Patientpresently occasionally uses NSAIDs for pain. Has not had any cortisoneinjections or other therapies. 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 Nikolay's negative .Imaging: Plain films from [facility] are personally reviewed by johnathon demonstrate severe lateral compartment degenerative changes of rightknee as well as spurring of patellofemoral joint, particularly alongmedial trochlea.Procedure: NoneImpression: Kalina Sheppard is a 46 year old male [...] Return to clinic after completion of MRI.Ankit Kaur MD [facility] PROGRESS HNO ID: [id number] thor: Henny Vuong RtService: (none)Author Type: (none)Type: Progress NotesFiled: 02/07/2017 1:26 PMNote Text: Radiology Service Progress NotePATIENT NAME: Kalina SheppardMRN: [id number] OF SERVICE: February 07, 2017TIME: 1:23 PMPATIENT IDENTITY VERIFICATION COMPLETED USING TWO (2) METHODS: Patientconfirmed name verbally and Date of .PATIENT GENDER DATA: MalePATIENT RELEVANT IMPLANT DATA REVIEWED: YesRADIOLOGY DEPARTMENT: General X-ray: Exam(s) Completed: Lower ExtremityX-Ray(s): Knee, AP / Lat / Tunne / Merchant Right and Wt. Bearing:PERIPHERAL IV DATA: Not applicableSIGNED BY: Henny Vuong RtFebruary 07, 2017 1:23 PM [facility] XR KNEE 4V AP/PA BOTH+LAT/ME R [...] Number of different views (projections): 4 M: XB_1COMPARISON:None.RESUL T: No acute fracture or dislocation. There is severe narrowing of lateral joint compartment. Lateral and patellofemoral osteophytosis. Small evidence of right knee joint effusion.IMPRESSION: RIGHT KNEE OSTEOARTHRITIS DESCRIBED.Transcriptionis t: PSCB Transcribe Date/Time: Feb 07 2017 3:27PDictated by : EUGENE NICHOLS MDThis examination was interpreted and the report reviewed and electronically signed by: EUGENE NICHOLS MD on Feb 07 2017 3:28PM [id number] [facility] Vital Signs Date Time Vital Sign Value Performing Clinician Facility 06-04-2023 19:00-0500 Diastolic blood pressure 84 mm[Hg] [facility] 06-04-2023 19:00-0500 Heart rate 69 /min [facility] 06-04-2023 19:00-0500 Mean blood pressure 107 mm[Hg] [facility] 06-04-2023 19:00-0500 Respiratory rate 14 /min [facility] 06-04-2023 19:00-0500 Systolic blood pressure 152 mm[Hg] [facility] 06-04-2023 18:30-0500 Diastolic blood pressure 77 mm[Hg] [facility] 06-04-2023 18:30-0500 Heart rate 73 /min [facility] 06-04-2023 18:30-0500 Mean blood pressure 104 mm[Hg] [facility] 06-04-2023 18:30-0500 Respiratory rate 18 /min [facility] 06-04-2023 18:30-0500 SaO2% (BldA) [Mass fraction] 96 % [facility] 06-04-2023 18:30-0500 Systolic blood pressure 157 mm[Hg] [facility] 06-04-2023 18:00-0500 Diastolic blood pressure 83 mm[Hg] [facility] 06-04-2023 18:00-0500 Heart rate 66 /min [facility] 06-04-2023 18:00-0500 Mean blood pressure 110 mm[Hg] [facility] 06-04-2023 18:00-0500 Respiratory rate 16 /min [facility] 06-04-2023 18:00-0500 Systolic blood pressure 164 mm[Hg] [facility] 06-04-2023 15:10-0500 Body temperature 98.24 [degF] Elida Gudimella [facility] 06-04-2023 15:10-0500 Diastolic blood pressure 94 mm[Hg] Elida Gudimella [facility] 06-04-2023 15:10-0500 Heart rate 92 /min Elida Gudimella [facility] 06-04-2023 15:10-0500 Mean blood pressure 108 mm[Hg] Elida Gudimella [facility] 06-04-2023 15:10-0500 Respiratory rate 22 /min Elida Gudimella [facility] 06-04-2023 15:10-0500 SaO2% (BldA) [Mass fraction] 97 % Elida Gudimella [facility] 06-04-2023 15:10-0500 Systolic blood pressure 136 mm[Hg] Elida Gudimella [facility] 06-04-2023 13:50-0500 Body temperature 97.88 [degF] [facility] 06-04-2023 13:50-0500 Heart rate 92 /min [facility] 06-04-2023 13:50-0500 Respiratory rate 20 /min [facility] Encounters Encounter Date Encounter Type Care Provider Facility Start: 01-25-2024 End: 01-25-2024 Patient encounter procedure Donya A Felter CLASSIFICATION CASE MANAGER-NEWSPAPER DISTRIBUTOR SUPERVISOR Work Phone: [facility] Comment on above: Inflamed seborrheic keratosis Start: 01-25-2024 End: 01-25-2024 ambulatory DONYA A FELTER Not Available Start: 01-25-2024 End: 01-25-2024 Bamboo flowsheet Donya A Felter CLASSIFICATION CASE MANAGER-NEWSPAPER DISTRIBUTOR SUPERVISOR Work Phone: [facility] Start: 01-25-2024 End: 01-25-2024 Bamboo flowsheet Donya A Felter CLASSIFICATION CASE MANAGER-NEWSPAPER DISTRIBUTOR SUPERVISOR Work Phone: [facility] Start: 10-26-2023 End: 10-26-2023 ambulatory BELINDA SILVANYLAMiguel Not Available Start: 06-04-2023 End: 06-05-2023 ambulatory Elidaradha Ovalles Facility:[facility] Start: 06-04-2023 End: 06-04-2023 Emergency department patient visit Michelle Austin Facility[facility] Start: 06-04-2023 End: 06-04-2023 [facility] Start: 06-04-2023 End: 06-04-2023 Emergency department patient visit [facility] Jerzy Austin [facility] Start: 04-21-2022 Encounter for genera l adult medical examination without abnormal findings DR ARIADNA BERNAL [facility] Start: 04-20-2022 End: 04-20-[address] ARIADNA BERNAL Facility:[facility] Start: 04-17-2022 End: 04-18-[address] ARIADNA BERNAL Facility:[facility] Start: 04-17-2022 End: 04-18-2022 Encounter for general adult medical examination without abnormal findings DR ARIADNA BERNAL Facility:[facility] Start: 06-08-2017 End: 06-08-2017 Ambulatory ZAHEER AWAN [facility] Start: 04-29-2017 End: 04-30-2017 Ambulatory [facility] Start: 04-26-2017 End: 04-27-2017 [facility] Start: 04-22-2017 End: 04-23-2017 [facility] Start: 04-19-2017 End: 04-20-2017 [facility] Start: 04-15-2017 End: 04-16-2017 [facility] Start: 04-13-2017 End: 04-13-2017 Ambulatory ARACELI VELASCO ([facility] Start: 04-12-2017 End: 04-13-2017 [facility] Start: 04-08-2017 End: 04-09-2017 [facility] Start: 04-06-2017 End: 04-07-2017 [facility] Start: 03-30-2017 End: 03-31-2017 [facility] Start: 03-30-2017 End: 03-31-2017 Ambulatory DEFAULT PHYSICIAN Facility:[facility] Start: 03-22-2017 End: 03-22-2017 Ambulatory ZAHEER AWAN [facility] Start: 02-23-2017 End: 02-23-2017 Ambulatory ZAHEER AWAN [facility] Start: 02-07-2017 End: 02-07-2017 [facility] Procedures Date Procedure Procedure Detail Performing Clinician Start: 01-25-2024 CRYOTHERAPY SKIN LESION Donya Corado CLASSIFICATION CASE MANAGER-NEWSPAPER DISTRIBUTOR SUPERVISOR Work Phone: Start: 04-17-[address] ASHLEY BERNAL Comment on above: Performed By: #### P [facility] #### [facility] [address] [place] [address] Dr. Lucia Ellis Plan of Treatment Date Care Activity Detail Author Start: 01-25-2024 End: 01-25-2024 Patient encounter procedure 01/25/2024 3:40 PM EDT Office Visit [facility] [address] [place] [address] Donya Corado, CLASSIFICATION CASE MANAGER-NEWSPAPER DISTRIBUTOR SUPERVISOR [address] [place] [address] Arrived [facility] Comment on above: Arrived Start: 12-11-2023 Influenza vaccination Influenza Vacc ine (#1) [facility] Start: 1970 Screening for malign ant neoplasm of colon [facility] Immunizations Immunization Date Immunization Notes Care Provider Fa cility 04-14-2023 influenza virus vacc ine, unspecified formulation Donya Corado CLASSIFICATION CASE MANAGER-NEWSPAPER DISTRIBUTOR SUPERVISOR Work Phone: [facility] Payers Date Payer Category Payer [facility] [id number] 2017 Unknown [id number] 1970 Unknown [id number] 1970 Unknown [id number] 1970 Unknown [id number]. [id number] 1970 Unknown [id number] 1970 Unknown [id number] 1970 Unknown [id number] 1958 Unknown [id number] Unknown Social History Date Type Detail Facility Tobacco smoking status [facility] Start: 10-26-2023 End: 01-25-2024 Sex Assigned At Male Aaron [facility]field [facility] Start: 10-26-[address] [facility] Never smoked tobacco [facility] Start: 10-26-2023 Tobacco use and exposure Smokeless tobacco non-user [facility] Start: 10-26-2023 End: 01-25-2024 History of Social function [facility] Start: 1970 Sex assigned at Not on file N [facility] [place] Healthcare Functional Status Date Assessment Result Facility 06-04-2023 Functional Status N/A [facility] Hospital Discharge instructions 06-04-2023 Note Date & Type Note Facility 06-04-2023 Hospital Discharg e instructions Patient Education 06/04/2023 19:28:43 Anaphylactic Reaction, Adult Anaphylactic Reaction, Adult An anaphylactic reaction (anaphylaxis) is a sudden, severe allergic reaction by the body's disease-fighting system (immune system). Anaphylaxis can be life-threatening. This condition must be treated right away. Sometimes a person may need to be treated in the hospital. What are the causes? This condition is caused by exposure to a substance that you are allergic to (allergen). In response to this exposure, the body releases proteins (antibodies) and other compounds, such as histamine, into the bloodstream. This causes swelling in certain tissues and loss of blood pressure to important areas, such as the heart and lungs. Common allergens that can cause anaphylaxis include: Foods, especially peanuts, wheat, shellfish, milk, and eggs. Medicines. Insect bites or stings. Blood or parts of blood received for treatment (transfusions). Chemicals, such as dyes, latex, and contrast material that is used for medical tests. What increases the risk? This condition is more likely to occur in people who: Have allergies. Have had anaphylaxis before. Have a family history of anaphylaxis. Have certain medical conditions, including asthma and eczema. What are the signs or symptoms? Symptoms of anaphylaxis may include: Feeling end finder forming department the face (flushed). This may include redness. Itchy, red, swollen areas of skin (hives). Swelling of the eyes, lips, face, mouth, tongue, or throat. Difficulty breathing, speaking, or swallowing. Dizziness, light-headedness, or fainting. Pain or cramping in the abdomen. Vomiting or diarrhea. How is this diagnosed? This condition is diagnosed based on: Your symptoms. A physical exam. Blood tests. Recent history of exposure to allergens. How is this treated? If you think you are having an anaphylactic reaction, you should do the following right away: Give yourself an epinephrine injection using what is commonly called an auto-injector pen (pre-filled automatic epinephrine injection device). Your health care provider will teach you how to use an auto-injector pen. Call for emergency help. If you use a pen, you must still get emergency medical treatment in the hospital. Treatment in the hospital may include: ?Medicines to help: ?Tighten your blood vessels (epinephrine). ?Relieve itching and hives (antihistamines). ?Reduce swelling (corticosteroids). ?Oxygen therapy to help you breathe. ?IV fluids to keep you hydrated. Follow these instructions at home: Safety Always keep an auto-injector pen near you. This can be lifesaving if you have a severe anaphylactic reaction. Use your auto-injector pen as told by your health care provider. Do not drive after an anaphylactic reaction until your health care provider approves. Make sure that you, the members of your household, and your employer know: ?What you are allergic to, so it can be avoided. ?How to use an auto-injector pen to give you an epinephrine injection. Replace your epinephrine immediately after you use your auto-injector pen. This is important if you have another reaction. If possible, carry two epinephrine auto-injector pens. If told by your health care provider, wear a medical alert bracelet or necklace that states your allergy. Learn the signs of anaphylaxis so that you can recognize and treat it right away. Work with your health care providers to make an anaphylaxis plan. Preparation is important. General instructions Tell all your health care providers that you have an allergy. If you have hives or rash: ?Use an rxkh-aed-emswoie antihistamine as told by your health care provider. ?Apply cold, wet cloths (cold compresses) to your skin or take baths or showers in cool water. Avoid hot water. Take iyva-vng-axpwsfn and prescription medicines only as told by your health care provider. Keep all follow-up visits as told by your health care provider. This is important. How is this prevented? Avoid allergens that have caused an anaphylactic reaction in the past. When you are at a restaurant, tell your enlisted aircrew/aerial observer/gunner that you have an allergy. If you are not sure whether a menu item contains an ingredient that you are allergic to, ask your enlisted aircrew/aerial observer/gunner. Where to find more information [employer] [employer]: aaaai.org [place] [employer]: healthychildren.org Get help right away if: You develop symptoms of an allergic reaction. You may notice them soon after you are exposed to a substance. You used epinephrine. You need more medical care even if the medicine seems to be working. This is important because anaphylaxis may happen again within 72 hours (rebound anaphylaxis). You also may need more doses of epinephrine. These symptoms may represent a serious problem that is an emergency. Do not wait to see if the symptoms will go away. Do the following right away: Use the auto-injector pen as you have been instructed. Get medical help. Call your local emergency services (911 in the [place] Do not drive yourself to the hospital. Summary An anaphylactic reaction (anaphylaxis) is a sudden, severe allergic reaction by the body's disease-fighting system (immune system). This condition can be life-threatening. If you have an anaphylactic reaction, get medical help right away. Your health care provider may teach you how to use an auto-injector pen (pre-filled automatic epinephrine injection device) to give yourself a shot. Always keep an auto-injector pen with you. This could save your life. Use it as told by your health care provider. If you use epinephrine, you must still get emergency medical treatment, even if the medicine seems to be working. This information is not intended to replace advice given to you by your health care provider. Make sure you discuss any questions you have with your health care provider. Document Revised: 05/14/2021 Document Reviewed: 05/14/2021 [employer] Patient Education 2022 [employer] Follow Up Care 06/04/2023 13:48:37 With:Ariadna Bernal Address: [address] [place] [address] [place] [address]- Business (1) When:06/07/2023 19:12:33 Comments:Make sure to take Benadryl 50 mg every 6 hours and Pepcid 20 mg twice a day in addition to the prescribed medication. Make sure to avoid penicillin or any penicillin products. Return to the emergency room if the rash recurs, difficulty swallowing, difficulty breathing or any new symptoms. [facility] Evaluation + Plan note 06-04-2023 Note Date & Type Note Facility 06-04-2023 Evaluation + Plan note Extrac sonu from: Title:ED Note Author:Michelle Austin M.D. te:06/04/23 1. Anaphylactic reaction (T7 8.2XXA: Anaphylactic shock, unspecified, initial encounter) Orders: diphenhydrAMINE, 50 mg = 1 mL, Injection, IV Push, Once, Stop date 06/04/23 13:54:00 EST, Start date 06/04/23 13:54:00 EST epinephrine, 0.3 mg = 1 EA, IntraMuscular, As Directed, PRN Anaphylaxis, # 1 EA, Refills(s) 0 epinephrine, 1 mg = 1 mL, Injection, IntraMuscular, Once, Stop date 06/04/23 13:53:00 EST, Start date 06/04/23 13:53:00 EST famotidine, 20 mg = 2 mL, Soln-IV, IV Push, Once, Stop date 06/04/23 13:55:00 EST, Start date 06/04/23 13:55:00 EST methylPREDNISolone, 125 mg = 2 mL, Injection, IV Push, Once, Stop date 06/04/23 13:54:00 EST, Start date 06/04/23 13:54:00 EST predniSONE, 50 mg = 1 tab(s), Oral, Daily, X 5 day(s), # 5 tab(s), Refills(s) 0 Sodium Chloride 0.9% intravenous solution 1,000 mL, 1,000 mL, IV, Bolus, STAT, Start date 06/04/23 14:03:00 EST, Total volume (mL): 1,000, 118 kg, 2.44, m2 [facility] Evaluation + Plan note Note Date & Type Note Facility Evaluation + Plan note No data available for this section [facility] Evaluation note Note Date & Type Note Facility Evaluation note Diagnosis Inflamed seborrheic keratosis documented in this encounter [facility] Healthcare History of Present illness Narrative YUNI Ruiz - 01/25/2024 3:40 PM EDT Note Date & Type Note Facility History of Present illness Narrative Lesions: Location: right lower eyelid Duration: Months Quality: denies pain, denies itch, denies bleeding Modifying factors: relieved with scratching Associated symptoms: non-healing, rough Treatments: none New patient All pertinent medical history, medications, and allergies were reviewed. General Exam: alert, oriented to person, place, and time, normal affect, well appearing Unaccompanied A focused exam completed based on patient reported problems, see below: 1. Inflamed seborrheic keratosis Right Lower Eyelid Inflamed seborrheic keratoses: pink and brown stuck on verrucous scaly papule with surrounding erythema and bloody crust. The patient was informed that symptomatic seborrheic keratoses are benign growths that become inflamed, itchy, tender, traumatized, caught on clothing, or bleed. Symptomatic lesions can be treated with cryotherapy or curretage. Thicker lesions treated with cryotherapy may require more than one treatment. The patient was instructed to notify the office if abnormal redness or tenderness develops at the treatment site. Cryotherapy today, see procedure note. Diagnosis: Inflamed seborrheic keratosis Indication: Inflamed Consent: Verbal consent was obtained and risks were discussed, including, but not limited to risks of scarring, darker or phlebotomy specialist pigmentary changes, recurrence, incomplete removal and infection. Method: Liquid nitrogen was used to treat the lesion(s) with two 5-10 second freeze-thaw cycles Number of lesions treated: 1 Post-procedure instructions: Instructions were given orally and in writing. The office will be contacted if the lesion fails to resolve despite treatment, or if a side effect develops such as abnormal crusting, scabbing, redness or tenderness Cryotherapy, skin lesion - Right Lower Eyelid Next Visit: prn for any new/changing lesions documented in this encounter [facility] Discharge instructions Note Date & Type Note Facility Hospital Discharge instructions No data available for this section [facility] Progress note Note Date & Type Note Facility Progress note No data available for this section [facility] Summary Purpose Family History No Family History Records FoundNo Family History Records FoundNo Family History Records FoundNo Family History Records FoundNo Family History Records Found No data available for this section No data available for this section No Family History Records FoundNo Family History [...] section and content) DATE CREATED AUTHOR 09/30/2017 [facility] DATE CREATED AUTHOR AUTHOR'S ORGANIZ ATION 10/03/2017 Berna spence DATE CREATED AUTHOR AUTHOR'S ORGANIZ ATION 10/04/2017 [facility] DATE CREATED AUTHOR AUTHOR'S ORGANIZ ATION 10/04/2017 [facility] DATE CREATED AUTHOR AUTHOR'S ORGANIZ ATION 04/22/[address] [facility] DATE CREATED AUTHOR AUTHOR'S ORGANIZ ATION 06/28/2023 [facility] DATE CREATED AUTHOR AUTHOR'S ORGANIZ ATION 01/28/2024 [facility] EPIC Patient Care team informatio n (unrecognized section and content) Intelligence Analyst Relationship Specialty Start Date End Date Ariadna Bernal MD [address] [place] [address] PCP - General Family Medicine 09/07/23 Intelligence Analyst Relationship Specialty Start Date End Date Ariadna Bernal MD [address] [place] [address] PCP - General Family Medicine 09/07/23 Reason for Visit (unrecogniz ed section and content) Reason Comments Suspicious Skin Lesion FOR RECORDS PERTAINING TO PATIENTS WHO ARE [...] BE BASED ON THE PRIMARY CLINICAL RECORDS. [employer] [facility]. provides no warranty or guarantee of the accuracy or completeness of information in this document.
== END 2024-05-25 14:38 | disposition home or self-care (01) ==
PROVIDERS: PCP Family Medicine; Visit Provider Family Medicine
DX: R07.81 Pleurodynia (principal); S22.31XA Fracture of one rib, right side, initial encounter for closed fracture; M17.11 Unilateral primary osteoarthritis, right knee
CPT/HCPCS: 71101; 73562

== ENCOUNTER 2024-08-13 15:56 | Outpatient (OUT) | payer BC, SELFPAY ==
--- NOTE | 2024-08-13 16:10 | XR_ITS ---
The [address] [address] Patient Name: KALINA SHEPPARD MRN: [id number] date: 1970 Sex: M Assigned Patient Location: RAD Current Patient Location: [facility] Accession/Order Number: [id number] Exam Date: 08/13/2024 17:36 Report Date: 08/13/2024 17:40 At the request of: ARIADNA KWON MD Procedure: XR soft tissue neck LATERAL SOFT TISSUE NECK CLINICAL HISTORY: Foreign body in soft tissue, M79.5 COMPARISON: None FINDINGS: No prevertebral soft tissue swelling. There is fullness in the piriform sinus/epiglottis region. No bony destruction is seen. No radiopaque foreign body. XR/XR soft tissue neck IMPRESSION: FULLNESS INVOLVING THE PIRIFORM SINUS/EPIGLOTTIS REGION. THIS MAY FURTHER EVALUATED BY CT SOFT TISSUE NECK WITH IV CONTRAST. Impression dictated by: Godwin Morris Jr., D.O. 08/13/2024 5:40 PM Dictation Location: [place] [address] Electronically authenticated by: [id number] Y Date: 08/13/2024 17:40
== END 2024-08-13 15:57 | disposition home or self-care (01) ==
LOC: RAD 15:57
PROVIDERS: PCP Family Medicine; Visit Provider Family Medicine
DX: M79.5 Residual foreign body in soft tissue (principal)
CPT/HCPCS: 70360

== ENCOUNTER 2024-08-17 07:53 | Outpatient (OUT) | payer BC, SELFPAY ==
--- NOTE | 2024-08-17 07:58 | CT_ITS ---
The [address] [address] Patient Name: KALINA SHEPPARD MRN: [id number] date: 1970 Sex: M Assigned Patient Location: CT Current Patient Location: CT Accession/Order Number: [id number] Exam Date: 08/17/2024 10:04 Report Date: 08/17/2024 10:06 At the request of: ARIADNA KWON MD Procedure: CT soft tissue neck w con CT soft tissue neck w con 08/17/2024 8:21 AM SIGNS AND SYMPTOMS: ^Foreign Body In Soft Tissue TECHNIQUE: Multidetector CT axial slices of the soft tissues of the neck were obtained with IV contrast. Sagittal and coronal reformats were reconstructed. CT was performed with one or more of the following dose reduction techniques: Automated exposure control, adjustment of the mA and/or kV according to patient size, or use of iterative reconstruction technique. COMPARISON: None FINDINGS: Mucosal surfaces of the nasopharynx, oropharynx, hypopharynx, glottic, and subglottic airways are grossly unremarkable. No radio opaque foreign body is seen. Left tonsillar calcifications. The parotid glands, submandibular, and the thyroid gland are within normal limits. No soft tissue swelling or lymphadenopathy. The carotid and jugular circulations are within normal limits. The visualized lung parenchyma shows no acute pathology. No acute bony abnormalities are appreciated. CT/CT soft tissue neck w con IMPRESSION: No acute findings. No radiopaque foreign body. Impression dictated by: Godwin Morris Jr., D.O. 08/17/2024 10:06 AM Dictation Location: [place] [address] Electronically authenticated by: [id number] Y Date: 08/17/2024 10:06
== END 2024-08-17 07:54 | disposition home or self-care (01) ==
LOC: CT 07:53
PROVIDERS: PCP Family Medicine; Visit Provider Family Medicine
DX: M79.5 Residual foreign body in soft tissue (principal)
CPT/HCPCS: 70491; Q9967